=== PATIENT | female | born 1965 | race Caucasian/White ===

== ENCOUNTER 2021-07-20 10:28 | Outpatient (CLI) | payer BC, SELFPAY ==
[2021-07-20 10:42] LABS: Basophils Absolute Auto 0.02 K/mm3 (0.00-0.10); Basophils Percent Auto 0.4 % (0.0-1.0); Eosinophils Absolute Auto 0.09 K/mm3 (0.02-0.50); Eosinophils Percent Auto 1.7 % (1.0-6.0); Hematocrit 41.5 % (35.0-49.0); Hemoglobin 13.4 g/dL (12.0-15.0); Immature Granulocyte Absolute 0.02 K/mm3 (0.00-0.00); Immature Granulocyte Percent A 0.4 % (0.0-0.0); Lymphocytes Absolute Auto 2.02 K/mm3 (1.10-4.50); Mean Corpuscular HGB Conc 32.3 g/dL (32.0-36.0); Mean Corpuscular Volume 89.8 fL (78.0-102.0); Mean Platelet Volume 9.2 fl (9.2-11.8); Monocytes Absolute Auto 0.37 K/mm3 (0.10-0.90); Neutrophils Absolute Auto 2.8 K/mm3 (1.7-7.2); Neutrophils Percent Auto 52.5 % (50.0-70.0); Platelet Count Result 247 K/mm3 (150-420); Red Blood Count 4.62 M/mm3 (4.20-5.40); Red Cell Distribution Width 12.2 % (11.6-14.4); White Blood Count 5.3 K/mm3 (4.8-10.8)
[2021-07-20 12:22] LABS: Alanine Aminotransferase 34 U/L (14-59); Alkaline Phosphatase 80 U/L (46-116); Anion Gap 5 mmol/L (8-16); Aspartate Amino Transferase 15 U/L (15-37); Bilirubin,Total 0.4 mg/dL (0.00-1.00); Blood Urea Nitrogen 16 mg/dL (7-18); Calcium 8.8 mg/dL (8.5-10.1); Carbon Dioxide 31 mmol/L (21-32); Chloride 105 mmol/L (98-108); Cholesterol 206 mg/dL (0-200); Estimated Glomerular Filt Rate > 60; Ferritin 151 ng/mL (8-252); Glucose 92 mg/dL (70-99); HDL Direct 65 mg/dL (40-60); Iron 99 ug/dL (50-170); LDL Cholesterol Calculated 131 mg/dL (<130); Osmolality Calculated 293 mOsm/kg (285-295); Percent Iron Saturation 32 % (12-57); Sodium 141 mmol/L (136-145); Thyroid Stimulating Hormone 2.71 uIU/mL (0.36-3.74); Total Protein 7.2 g/dL (6.4-8.2); Triglycerides 49 mg/dL (0-150); Vitamin B12 491 pg/mL (193-986)
[2021-07-23 15:18] LABS: Vitamin D 25 Hydroxy 35 ng/mL (30-100)
== END 2021-07-20 10:29 | disposition home or self-care (01) ==
LOC: CHSLAB 10:32
PROVIDERS: PCP Internal Medicine; Visit Provider Clinical Nurse Specialist
DX: Z13.228 Encounter for screening for other metabolic disorders (principal); D64.9 Anemia, unspecified; E89.0 Postprocedural hypothyroidism; Z13.220 Encounter for screening for lipoid disorders; E55.9 Vitamin D deficiency, unspecified
CPT/HCPCS: 36415; 80053; 80061; 82306; 82607; 82728; 83540; 83550; 84443; 85025

== ENCOUNTER 2021-07-31 09:24 | Outpatient (CLI) | payer BC, SELFPAY ==
--- NOTE | ~2021-07-31 | US_ITS ---
EXAMINATION: US venous doppler [facility] EXAM DATE: 07/31/2021 10:14 INDICATION: Leg swelling swelling, reflux. TECHNIQUE: Multiple grayscale, color flow and Doppler images of the left lower extremity deep venous system were obtained and reviewed. There is no prior study for comparison. FINDINGS: The left common femoral, femoral and profunda veins demonstrate normal color flow, respirat ory variation, augmentation and compressibility. Compressibility, color flow confirmed within the le ft popliteal, posterior tibial, peroneal, and greater saphenous veins. Left Standing Venous Mapping: reflux seconds duration; vein size. Greater saphenous origin: 0 seconds; 5.2 mm. Greater saphenous mid thigh:------ 0 seconds; 3.9 mm. Greater saphenous below knee:--- 0 seconds; 3.2 mm. Lesser saphenous proximally:------ 0 seconds; 2.8 mm. Lesser saphenous distally: 0 seconds; 1.7 mm. IMPRESSION: No left lower extremity deep venous thrombosis or reflux demonstrated. Reviewed, dictated and finalized at location B. IMPRESSION: No left lower extremity deep venous thrombosis or reflux demonstrat ed.
== END 2021-07-31 09:25 | disposition home or self-care (01) ==
LOC: ANHIMG 09:27
PROVIDERS: PCP Internal Medicine; Visit Provider Clinical Nurse Specialist
DX: M79.605 Pain in left leg (principal); M79.89 Other specified soft tissue disorders
CPT/HCPCS: 93971

== ENCOUNTER 2021-09-20 10:03 | Outpatient (CLI) | payer BC, SELFPAY ==
--- NOTE | 2021-09-20 11:30 | NEURO_ITS ---
Impression: # Complains of paresthesia of lower extremities. # Normal nerve conduction study. # No Tarsal Tunnel Syndrome. # Normal needle/EMG exam. # Clinical correlation recommended. Nerve Conduction Studies Anti Sensory Summary Table Stim Site NR Peak (ms) P-T Amp (?V) Site1 Site2 Delta-P (ms) Dist (cm) Ramone (m/s) Left Sup Fibular Anti Sensory (Ant Lat Mall) 14 cm 2.6 99.8 14 cm Ant Lat Mall 2.6 16.0 62 Right Sup Fibular Anti Sensory (Ant Lat Mall) 14 cm 2.9 11.9 14 cm Ant Lat Mall 2.9 16.0 55 Left Sural Anti Sensory (Lat Mall) Calf 3.3 4.3 Calf Lat Mall 3.3 16.0 48 Right Sural Anti Sensory (Lat Mall) Calf 3.8 13.7 Calf Lat Mall 3.8 16.0 42 Motor Summary Table Stim Site NR Onset (ms) O-P Amp (mV) Site1 Site2 Delta-0 (ms) Dist (cm) Ramone (m/s) Left Lateral Plantar Motor (ADM) Med Mall 4.7 4.1 Right Lateral Plantar Motor (ADM) Med Mall 4.5 3.7 Left Peroneal Motor (Vastus Med) Ankle 4.1 3.3 Popit Ankle 7.7 39.0 51 Popit 11.8 3.1 Right Peroneal Motor (Vastus Med) Ankle 4.0 5.5 Popit Ankle 8.0 38.0 48 Popit 12.0 4.7 Left Tibial Motor (Abd West Brev) Ankle 4.8 1.6 Knee Ankle 7.7 42.0 55 Knee 12.5 3.1 Right Tibial Motor (Abd West Brev) Ankle 4.2 10.7 Knee Ankle 9.2 42.0 46 Knee 13.4 6.8 F Wave Studies NR F-Lat (ms) L-R F-Lat (ms) Left Peroneal (Mrkrs) (EDB) 51.47 1.04 Right Peroneal (Mrkrs) (EDB) 50.43 1.04 Left Tibial (Mrkrs) (Abd Hallucis) 53.72 1.14 Right Tibial (Mrkrs) (Abd Hallucis) 52.58 1.14 EMG Side Muscle Nerve Root Ins Act Fibs Amp Dur Recrt Comment Right AntTibialis Dp Br Fibular L4-5 Nml Nml Nml Nml Nml Right Gastroc Tibial S1-2 Nml Nml Nml Nml Nml Right Fibularis Long Sup Br Fibular L5-S1 Nml Nml Nml Nml Nml Right Flex Dig Long Tibial L5-S2 Nml Nml Nml Nml Nml Right Ext Dig Brev Dp Br Fibular L5, S1 Nml Nml Nml Nml Nml Left AntTibialis Dp Br Fibular L4-5 Nml Nml Nml Nml Nml Left Gastroc Tibial S1-2 Nml Nml Nml Nml Nml Left Fibularis Long Sup Br Fibular L5-S1 Nml Nml Nml Nml Nml Left Flex Dig Long Tibial L5-S2 Nml Nml Nml Nml Nml Left Ext Dig Brev Dp Br Fibular L5, S1 Nml Nml Nml Nml Nml MTDD
== END 2021-09-20 10:04 | disposition home or self-care (01) ==
LOC: ANHNEURO 10:12
PROVIDERS: PCP Internal Medicine; Visit Provider Clinical Nurse Specialist
DX: R20.0 Anesthesia of skin (principal); R20.2 Paresthesia of skin
CPT/HCPCS: 95886; 95911

== ENCOUNTER 2022-07-26 08:05 | Outpatient (CLI) | payer BC, SELFPAY ==
--- NOTE | ~2022-07-26 | XR_ITS ---
EXAMINATION: XR chest 2V DATE: 07/26/2022 08:40 INDICATION: Cough and shortness of breath TECHNIQUE: PA and lateral views of the chest are obtained. COMPARISON: 10/04/2009 FINDINGS: The lungs are free of acute opacities. No pleural effusion or pneumothorax. The cardiomedia stinal silhouette is normal. There is moderate thoracic spondylosis. IMPRESSION: 1. No acute cardiopulmonary abnormality. Reviewed, dictated and finalized at location B.
[2022-07-26 08:20] LABS: Basophils Absolute Auto 0.02 K/mm3 (0.00-0.10); Basophils Percent Auto 0.4 % (0.0-1.0); Eosinophils Absolute Auto 0.09 K/mm3 (0.02-0.50); Eosinophils Percent Auto 1.7 % (1.0-6.0); Hematocrit 41.5 % (35.0-49.0); Hemoglobin 13.4 g/dL (12.0-15.0); Immature Granulocyte Absolute 0.03 K/mm3 (0.00-0.00); Immature Granulocyte Percent A 0.6 % (0.0-0.0); Lymphocytes Absolute Auto 2.17 K/mm3 (1.10-4.50); Lymphocytes Percent Auto 40.9 % (18.0-42.0); Mean Corpuscular HGB Conc 32.3 g/dL (32.0-36.0); Mean Corpuscular Hemoglobin 28.8 pg (27.0-31.0); Mean Corpuscular Volume 89.2 fL (78.0-102.0); Mean Platelet Volume 9.5 fl (9.2-11.8); Monocytes Absolute Auto 0.35 K/mm3 (0.10-0.90); Monocytes Percent Auto 6.6 % (2.0-11.0); Neutrophils Absolute Auto 2.6 K/mm3 (1.7-7.2); Neutrophils Percent Auto 49.8 % (50.0-70.0); Platelet Count Result 252 K/mm3 (150-420); Red Blood Count 4.65 M/mm3 (4.20-5.40); Red Cell Distribution Width 12.2 % (11.6-14.4); White Blood Count 5.3 K/mm3 (4.8-10.8)
[2022-07-26 08:44] LABS: Alanine Aminotransferase 31 U/L (14-59); Albumin Level 3.6 g/dL (3.4-5.0); Alkaline Phosphatase 72 U/L (46-116); Anion Gap 9 mmol/L (8-16); Aspartate Amino Transferase 15 U/L (15-37); Bilirubin,Total 0.2 mg/dL (0.00-1.00); Blood Urea Nitrogen 19 mg/dL (7-18); Calcium 8.6 mg/dL (8.5-10.1); Carbon Dioxide 25 mmol/L (21-32); Chloride 106 mmol/L (98-108); Cholesterol 198 mg/dL (0-200); Estimated Glomerular Filt Rate > 60; Glucose 108 mg/dL (70-99); HDL Direct 59 mg/dL (40-60); LDL Cholesterol Calculated 127 mg/dL (<130); Osmolality Calculated 293 mOsm/kg (285-295); Potassium 3.9 mmol/L (3.5-5.1); Sodium 140 mmol/L (136-145); Thyroid Stimulating Hormone 3.57 uIU/mL (0.36-3.74); Triglycerides 58 mg/dL (0-150)
[2022-08-01 20:51] LABS: Vitamin D 25 Hydroxy 33 ng/mL (30-100)
== END 2022-07-26 08:06 | disposition home or self-care (01) ==
LOC: CHSIMG 08:09
PROVIDERS: PCP Internal Medicine; Visit Provider Clinical Nurse Specialist
DX: R05.9 Cough, unspecified (principal); Z13.228 Encounter for screening for other metabolic disorders; D64.9 Anemia, unspecified; Z13.220 Encounter for screening for lipoid disorders; E89.0 Postprocedural hypothyroidism; E55.9 Vitamin D deficiency, unspecified
CPT/HCPCS: 36415; 71046; 80053; 80061; 82306; 84443; 85025

== ENCOUNTER 2022-08-08 14:17 | Outpatient (CLI) | payer BC, SELFPAY ==
--- NOTE | 2022-08-08 16:24 | WPDPFTINT ---
PFT Procedure Performed PFT Procedure Performed Spirometry with Pre/Post Bronchodilator Plethysmography (Lung Vol) Diffusing Cap (DLCO) Flow Vol Loop PFT Interpretation This is a pulmonary function test with pre and post-bronchodilator spirometry, plethysmography and diffusing capacity. The test was performed and results interpreted in accordance with the 2019 and 2005 ATS/ERS Task Force guidelines respectively using the Global Lung Function Initiative-2012 reference equations. Patient demonstrated good effort and cooperation. Reproducibility criteria were met. The quality of the pre bronchodilator spirometry maneuver was Grade B and post bronchodilator spirometry maneuver was Grade A. Findings: Spirometry: The contour the inspiratory expiratory flow tracing are normal. The pre bronchodilator FVC is 2.97 L, 85% predicted. The pre bronchodilator FEV1 is 2.18 L, 79% predicted. The pre bronchodilator FEV1: FVC ratio 74%. The post bronchodilator FVC is 2.91 L, representing a 2% decrease. The post bronchodilator FEV1 is 2.18 L, representing no change. The post bronchodilator FEV1: FVC ratio 75%. Plethysmography: The total lung capacity is 4.66 L, 87% predicted. Functional residual capacity is 2.28 L, 75% predicted. The residual volume is 1.69 L, 83% predicted. Diffusion capacity: The diffusing capacity unadjusted for hemoglobin and carboxyhemoglobin is 23.0, 101% predicted. The diffusing capacity adjusted for alveolar volume is 5.12, 116% predicted. Impression: The spirometry is normal without evidence of an obstructive abnormality. There is no significant improvement after inhaling a single dose of albuterol. The lung volumes are normal. The diffusing capacity is normal. There are no prior studies for comparison
== END 2022-08-08 14:18 | disposition home or self-care (01) ==
LOC: ANHPFT 14:21
PROVIDERS: PCP Internal Medicine; Visit Provider Clinical Nurse Specialist
DX: J18.9 Pneumonia, unspecified organism (principal); J40 Bronchitis, not specified as acute or chronic
CPT/HCPCS: 94060; 94726; 94729

== ENCOUNTER 2024-02-09 11:21 | Outpatient (CLI) | payer BC, SELFPAY ==
--- NOTE | ~2024-02-09 | XR_ITS ---
XR shoulder LT min 2V 02/09/2024 11:50 Indication: Left shoulder pain Procedure: 4 views left shoulder Comparison: No prior studies for comparison. Findings: There is anatomic alignment. No fracture or traumatic malalignment. No significant soft tis lee abnormality. No foreign bodies. Impression: 1: No significant bone or joint abnormality. Reviewed, dictated and finalized at location B. Impression: 1: No significant bone or joint abnormality.
== END 2024-02-09 11:22 | disposition home or self-care (01) ==
LOC: CHSIMG 11:23
PROVIDERS: PCP Internal Medicine; Visit Provider Clinical Nurse Specialist
DX: M25.512 Pain in left shoulder (principal)
CPT/HCPCS: 73030

== ENCOUNTER 2024-02-10 06:59 | Outpatient (CLI) | payer BC, SELFPAY ==
[2024-02-10 07:11] LABS: Basophils Absolute Auto 0.03 K/mm3 (0.00-0.10); Basophils Percent Auto 0.6 % (0.0-1.0); Eosinophils Absolute Auto 0.08 K/mm3 (0.02-0.50); Eosinophils Percent Auto 1.5 % (1.0-6.0); Hematocrit 41.6 % (35.0-49.0); Hemoglobin 13.3 g/dL (12.0-15.0); Immature Granulocyte Absolute 0.02 K/mm3 (0.00-0.00); Immature Granulocyte Percent A 0.4 % (0.0-0.0); Lymphocytes Absolute Auto 2.28 K/mm3 (1.10-4.50); Lymphocytes Percent Auto 41.8 % (18.0-42.0); Mean Corpuscular Hemoglobin 28.6 pg (27.0-31.0); Mean Corpuscular Volume 89.5 fL (78.0-102.0); Monocytes Absolute Auto 0.37 K/mm3 (0.10-0.90); Monocytes Percent Auto 6.8 % (2.0-11.0); Neutrophils Absolute Auto 2.67 K/mm3 (1.70-7.20); Neutrophils Percent Auto 48.9 % (50.0-70.0); Platelet Count Result 233 K/mm3 (150-420); Red Blood Count 4.65 M/mm3 (4.20-5.40); Red Cell Distribution Width 12.2 % (11.6-14.4); White Blood Count 5.5 K/mm3 (4.8-10.8)
[2024-02-10 08:27] LABS: Alanine Aminotransferase 31 U/L (14-59); Albumin Level 3.6 g/dL (3.4-5.0); Alkaline Phosphatase 62 U/L (46-116); Anion Gap 10 mmol/L (8-16); Aspartate Amino Transferase 17 U/L (15-37); Bilirubin,Total 0.3 mg/dL (0.00-1.00); Blood Urea Nitrogen 19 mg/dL (7-18); Calcium 8.7 mg/dL (8.5-10.1); Carbon Dioxide 27 mmol/L (21-32); Chloride 105 mmol/L (98-108); Cholesterol 179 mg/dL (0-200); Estimated Glomerular Filt Rate > 60; Free T4 Free Thyroxine 0.81 ng/dL (0.76-1.46); Glucose 100 mg/dL (70-99); HDL Direct 64 mg/dL (40-60); LDL Cholesterol Calculated 97 mg/dL (<130); Osmolality Calculated 296 mOsm/kg (285-295); Potassium 4.2 mmol/L (3.5-5.1); Sodium 142 mmol/L (136-145); Thyroid Stimulating Hormone 7.22 uIU/mL (0.36-3.74); Total Protein 6.6 g/dL (6.4-8.2); Triglycerides 88 mg/dL (0-150)
[2024-02-12 22:12] LABS: Vitamin D 25 Hydroxy 49 ng/mL (30-100)
[2024-02-16 16:18] LABS: Free T3 2.78 pg/mL (2.18-3.98)
== END 2024-02-10 07:00 | disposition home or self-care (01) ==
LOC: CHSLAB 07:00
PROVIDERS: PCP Internal Medicine; Visit Provider Clinical Nurse Specialist
DX: Z13.228 Encounter for screening for other metabolic disorders (principal); Z13.220 Encounter for screening for lipoid disorders; F41.9 Anxiety disorder, unspecified; E55.9 Vitamin D deficiency, unspecified; E89.0 Postprocedural hypothyroidism; D64.9 Anemia, unspecified; R53.83 Other fatigue
CPT/HCPCS: 36415; 80053; 80061; 82306; 84439; 84443; 84481; 85025

== ENCOUNTER 2024-02-12 14:06 | Outpatient (CLI) | payer BC, SELFPAY ==
--- NOTE | ~2024-02-12 | US_ITS ---
EXAMINATION: US thyroid DATE: 02/12/2024 14:43 INDICATION: Other specified postprocedural states. Partial right thyroidectomy. TECHNIQUE: Multiple ultrasound images of the thyroid were obtained. COMPARISON: None. FINDINGS: The right thyroid lobe measures 1.4 x 0.8 x 0.7 cm. The left thyroid lobe measures 4.6 x 1.8 x 1.4 c m. In the left thyroid lobe, there is a 5 mm solid, very hypoechoic, wider than tall nodule with smo oth margin without echogenic foci (TI-RADS TR4). In the left thyroid lobe, there is a 6 mm solid, rosalina y hypoechoic, wider than tall nodule with smooth margin without echogenic foci (TR4). IMPRESSION: 1. Small thyroid nodules, likely not clinically significant. No follow-up is needed. Reviewed, dictated and finalized at location A. IMPRESSION: 1. Small thyroid nodules, likely not clinically significant. No follow-up is ne eded.
== END 2024-02-12 14:07 | disposition home or self-care (01) ==
LOC: CHSIMG 14:07
PROVIDERS: PCP Internal Medicine; Visit Provider Clinical Nurse Specialist
DX: R79.89 Other specified abnormal findings of blood chemistry (principal); Z98.890 Other specified postprocedural states; E04.2 Nontoxic multinodular goiter
CPT/HCPCS: 76536

== ENCOUNTER 2024-02-13 07:08 | Outpatient (CLI) | payer BC, SELFPAY ==
--- NOTE | ~2024-02-13 | MM_ITS ---
EXAMINATION: MM screening adonay BI w anthony HISTORY: Screening mammogram TECHNIQUE: Craniocaudal and mediolateral oblique 3-D tomosynthesis images were obtained and synthetic 2-D images were generated. CAD analysis was submitted and interpreted. COMPARISON: No prior mammogram is available for comparison at this institution. BREAST PARENCHYMAL COMPOSITION: The breasts are heterogeneously dense, which may obscure small masses . FINDINGS: Occasional bilateral benign calcifications. There is no evidence of suspicious mass, calcif ication, or architectural distortion to suggest malignancy in either breast. IMPRESSION: 1. No mammographic evidence of malignancy. 2. Recommend routine screening mammography in one year. BI-RADS Category 2: Benign finding(s). Reviewed, dictated and finalized at location A.
[2024-02-13 08:21] LABS: Hemoglobin A1C 5.2 % (<5.7)
[2024-02-13 08:24] LABS: Rheumatoid Factor Screen Negative (Negative)
[2024-02-13 08:36] LABS: Thyroid Stimulating Hormone 6.57 uIU/mL (0.36-3.74)
[2024-02-13 08:53] LABS: CRP < 0.5 mg/dL (0.0-0.9); Erythrocyte Sedimentation Rate 13 mm/hr (0-20)
[2024-02-13 09:37] LABS: Free T3 2.78 pg/mL (2.18-3.98)
[2024-02-15 12:12] LABS: ANA Cascade Screen Negative (Negative)
[2024-02-17 03:17] LABS: Thyroid Peroxidase Antibodies <1 IU/mL (<9)
== END 2024-02-13 07:09 | disposition home or self-care (01) ==
LOC: CHSIMG 07:09
PROVIDERS: PCP Internal Medicine; Visit Provider Clinical Nurse Specialist
DX: R79.89 Other specified abnormal findings of blood chemistry (principal); M79.10 Myalgia, unspecified site; R73.9 Hyperglycemia, unspecified; G62.9 Polyneuropathy, unspecified; Z12.31 Encounter for screening mammogram for malignant neoplasm of breast; E89.0 Postprocedural hypothyroidism; Z98.890 Other specified postprocedural states
CPT/HCPCS: 36415; 77063; 77067; 83036; 83516; 84443; 84481; 85652; 86038; 86140; 86225; 86235; 86376; 86430

== ENCOUNTER 2024-02-17 00:42 | Day surgery (SDC) | payer BC, SELFPAY ==
[2024-02-09 15:53] VITALS: BMI 32.3
--- NOTE | 2024-02-13 10:26 | SUR.PREOP ---
Patient called regarding upcoming procedure. Voicemail left regard appointment times.
[2024-02-17 08:10] VITALS: BP 112/72; PULSE 84; RESP 18; TEMP 36; O2SAT 100; BMI 32.2
[2024-02-17] MEDS: LACTATED RINGERS 1,000 ML 150 ML IV CONT ×2 (08:13→09:39)
--- NOTE | 2024-02-17 08:28 | P.PNAN_ITS ---
Anes - Initial Pre Proc Eval Procedure: Operation Date: 02/17/24 09:00 Proposed Procedures p Screening Colonoscopy - Tylor Augustine DO Date/Time: 02/17/24 08:28 Surgeon: Tylor Augustine DO Pre Op Diagnosis: Screening neoplasm Patient Data Age: 58 Gender: F Height: 1.68 m Weight: 90.6 kg Last Vital Signs Temp 96.8 F L 02/17/24 08:10 Pulse 84 02/17/24 08:10 Resp 18 02/17/24 08:10 BP 112/72 02/17/24 08:10 Pulse Ox 100 02/17/24 08:10 O2 Del Method Room Air 02/17/24 08:10 Allergies Allergy/AdvReac Type Severity Reaction Status Date / Time No Known Allergies Allergy Verified 02/17/24 08:09 Home Medications Medication Instructions Recorded Confirmed Type alprazolam 0.5 mg tablet (Xanax) 0.5 mg PO TID PRN anxiety #30 tabs 05/19/23 02/09/24 Rx escitalopram oxalate 10 mg tablet 10 mg PO DAILY #90 tabs 02/09/24 02/09/24 Rx (Lexapro) Patient hx anesthesia problems: none Family hx anesthesia problems: none Results Review: All pre-operative results and documents have been reviewed as part of the pre- operative evaluation. [facility] Past Medical History Medical History (Updated 02/12/24 @ 10:18 by ASHELY Hodge) Broken ankle Bronchitis Depression Fever Influenza A Left leg pain Left leg swelling Surgical History Surgical History H/O section History of thyroid surgery History of tonsillectomy Family History Family History Father , June 2022 Bladder cancer Hypertension Bile duct cancer Mother Hypertension Heart disease Heart attack June 2023 Grandparent Cancer Diabetes mellitus Cerebrovascular accident Social History Social History Smoking status: Never smoker Alcohol intake: never Substance use: never Substance use type: does not use Lack of Transportation: No Lack of Food: Never True Current Housing: I Have Housing Concerned About Future Housing: No Difficulty Paying Gas/Electric Bills: No Education: Master's Degree or Higher Difficulty w/ Childcare or Family Care: No Living arrangements: alone Spiritual care concerns: No Anes - Eval Final PreProcedure Day of Procedure 02/17/24 08:28 Patient weight: normal Heart: regular rate and rhythm Lungs: clear to auscultation Airway: Mallampati scale class II Neurological: alert and oriented Last oral intake: >/= 8 hours ASA classification: II Emergent: no Anesthetic plan: proceed Anesthesia type and monitoring: general GIVS and standard monitoring Results Review: All pre-operative results and documents have been reviewed as part of the pre- operative evaluation. Informed Consent: The patient's anesthetic plan and its attendant risks and benefits were discussed with the patient/family/POA. Questions were solicited and answers provided to the satisfaction of the patient/family/POA.
--- NOTE | 2024-02-17 09:11 | PM.IMHP ---
H&P: HPI History of Present Illness Date/Time: 02/17/24 09:11 Chief Complaint: Screening for colorectal cancer Narrative: This is a 58-year-old woman who presents for colonoscopy. Her last colonoscopy was 10 years ago. She states she has a family history of colon cancer in her grandmother, but no first-degree relatives. She denies any hematochezia or melena. Review of Systems Review of Systems: All systems reviewed & are unremarkable except as noted in HPI and below Constitutional: Constitutional: Denies chills, Denies fever(s), Denies headache(s) and Denies weight loss Eyes: Eyes: Denies change in vision ENT: Denies dizziness, Denies headache(s), Denies neck mass and Denies throat swelling Cardiovascular: Cardiovascular: Denies chest pain, Denies lightheadedness and Denies dyspnea Respiratory: Respiratory: Denies cough, Denies dyspnea and Denies wheezing Gastrointestinal: Gastrointestinal: Denies abdominal pain, Denies change in bowel habits, Denies nausea and Denies vomiting Genitourinary: Genitourinary: Denies hematuria and Denies dysuria Musculoskeletal: Musculoskeletal: Reports as per HPI Integumentary/Breasts: Skin/Breast: Reports as per HPI Neurologic: Denies dizziness and Denies headache(s) Allergic/Immunologic: Allergic/Immunologic: Denies throat swelling and Denies wheezing [facility] Past Medical History Medical History (Updated 02/17/24 @ 09:12 by Tylor Augustine DO) Broken ankle Bronchitis Depression Fever Influenza A Left leg pain Left leg swelling Surgical History Surgical History H/O section History of thyroid surgery History of tonsillectomy Family History Family History Father , June 2022 Bladder cancer Hypertension Bile duct cancer Mother Hypertension Heart disease Heart attack June 2023 Grandparent Cancer Diabetes mellitus Cerebrovascular accident Social History Social History Smoking status: Never smoker Alcohol intake: never Substance use: never Substance use type: does not use Lack of Transportation: No Lack of Food: Never True Current Housing: I Have Housing Concerned About Future Housing: No Difficulty Paying Gas/Electric Bills: No Education: Master's Degree or Higher Difficulty w/ Childcare or Family Care: No Living arrangements: alone Spiritual care concerns: No Meds Home Medications and Allergies Home Medications Medication Instructions Recorded Confirmed Type alprazolam 0.5 mg tablet (Xanax) 0.5 mg PO TID PRN anxiety #30 tabs 05/19/23 02/09/24 Rx escitalopram oxalate 10 mg tablet 10 mg PO DAILY #90 tabs 02/09/24 02/09/24 Rx (Lexapro) Allergies Allergy/AdvReac Type Severity Reaction Status Date / Time No Known Allergies Allergy Verified 02/17/24 08:09 Vital Signs Vital Signs - 24 hr 02/17/24 08:10 Temperature 36.0 C L Pulse Rate 84 Respiratory Rate 18 Blood Pressure 112/72 Pulse Oximetry 100 Oxygen Delivery Room Air Exam Const: General: no acute distress and alert Orientation/consciousness: patient oriented x3 HENMT: Head: normocephalic and atraumatic Ears: hearing grossly normal bilaterally Face/Nose/Sinus: Normal nares present Mouth: Yes Normal oral and palatal mucosa present Eyes: Periorbital: periorbital findings normal Sclera: sclerae normal EOM: EOMs intact bilaterally Neck: Neck: normal visual inspection, no lymphadenopathy and trachea midline Chest: Chest palpation & inspection: normal inspection of the chest Resp: Effort & Inspection: normal respiratory effort Auscultation: clear to auscultation bilaterally Cardio: Jugular venous distension: no JVD Rate: regular rate Rhythm: regular rhythm Heart sounds: S1 normal heart sound present and S2 luyd
[2024-02-17 09:50] VITALS: BP 118/72; PULSE 85; RESP 24; O2SAT 100
[2024-02-17 10:00] VITALS: BP 127/78; PULSE 78; RESP 22; O2SAT 100
[2024-02-17 10:09] VITALS: BP 125/76; PULSE 77; RESP 20; O2SAT 100
== END 2024-02-17 10:16 | disposition home or self-care (01) ==
PROVIDERS: PCP Internal Medicine; Visit Provider Surgery
PROC: 0DJD8ZZ Inspection of Lower Intestinal Tract, Via Natural or Artificial Opening Endoscopic (ICD-10-PCS; CPT 45378; principal; 2024-02-17 09:00)
DX: Z12.11 Encounter for screening for malignant neoplasm of colon (principal); K64.8 Other hemorrhoids; F32.A Depression, unspecified; Z98.890 Other specified postprocedural states; Z80.52 Family history of malignant neoplasm of bladder; Z80.0 Family history of malignant neoplasm of digestive organs; Z82.49 Family history of ischemic heart disease and other diseases of the circulatory system
CPT/HCPCS: 45378; J2704; J7120

== ENCOUNTER 2024-02-19 07:56 | Outpatient (RCR) | payer BC, SELFPAY ==
--- NOTE | 2024-02-19 09:12 | OPREHPOC ---
Outpatient Therapy Plan of Care This is a Multidisciplinary Plan of Care that may contain components documented by all disciplines (PT, OT, and ST.) PT Problem 1 PT Problem #1 Knowledge Deficit PT Goal 1 Goal The patient will be independent in a home exercise program. Target Visit 4 PT Problem 2 PT Problem #2 Pain PT Goal 1 Goal The patient will report no greater than 2/10 left shoulder pain with ADLs. Target Visit 9 PT Problem 3 PT Problem #3 Impaired Range of Motion PT Goal 1 Goal 1. The patient will demonstrate at least 160 degrees of left shoulder flexion to improve overhead reaching ability. 2. The patient will demonstrate at least 150 degrees of left shoulder abduction to improve ability to reach to the side. Target Visit 9 PT Problem 4 PT Problem #4 Impaired Strength PT Goal 1 Goal The patient will demonstrate at least 4/5 left shoulder strength in order to improve ability lift household items. Target Visit 9 PT Problem 5 PT Problem #5 Impaired Functional Mobil PT Goal 1 Goal The patient will demonstrate 15% or less self perceived disability per the Quick DASH questionnaire. Target Visit 9
--- NOTE | 2024-02-19 09:12 | PTOPEVAL1 ---
Assessment and note entered by Rosanne Castillo, PT Evaluation Information Assessment Status Evaluation Diagnosis L shoulder pain Subjective Information Candice Quick reports that her left shoulder started hurting a few months ago that started for unknown reasons. She thought that it would go away but it hasn't. 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 She went to the doctor and a x-ray was taken. The x-ray was normal. She is unable to lay on her left side, has difficulty reaching behind her back , and difficulty reaching overhead. She feels pain along the joint line and it is always present. She also notes catching when she tries to reach to end range. Reported Pain Level Pain Score 2: Self Report Assessment PT Clinical Summary Candice Quick presents with left shoulder pain with an insidious onset. She has difficulty with laying on her left side, reaching behind her back, reaching overhead, and reaching to the side. She objectively demonstrates tenderness at the long head of the bicep tendon and rotator cuff tendons, rounded shoulder posture, decreased and painful left shoulder AROM, decreased left shoulder strength, and decreased functional abilities. She demonstrates positive special tests for rotator cuff tendonitis and shoulder impingement. She will benefit from skilled PT to address these limitations. Plan of Care Interventions Electrical Stimulation,Hot Pack/Cold Pack,Manual Therapy,Neuro Re-education,Patient/Caregiver Educati,Therapeutic Activities,Therapeutic Exercise PT Services Indicated Yes Treatment Frequency and 2 times a week for 9 visits Duration These treatments will address the objective and functional deficits as defined above. The patient will be advanced safely and appropriately in order for the patient to progress towards his/her prior level of function. Additional exercises will be introduced and as well as a comprehensive home exercise program upon discharge, if needed, ?to ensure carryover of functional gains achieved in the clinic. This treatment plan has been reviewed and agreement upon by the patient.
[2024-03-18 07:03] VITALS: BP_SYST 160
--- NOTE | 2024-03-18 08:44 | OPREHPOC ---
Outpatient Therapy Plan of Care This is a Multidisciplinary Plan of Care that may contain components documented by all disciplines (PT, OT, and ST.) PT Problem 1 PT Problem #1 Knowledge Deficit PT Goal 1 Goal The patient will be independent in a home exercise program. Target Visit 4 Progress Met PT Problem 2 PT Problem #2 Pain PT Goal 1 Goal The patient will report no greater than 2/10 left shoulder pain with ADLs. Target Visit 17 Progress Partially Met Comment Continue PT Problem 3 PT Problem #3 Impaired Range of Motion PT Goal 1 Goal 1. The patient will demonstrate at least 160 degrees of left shoulder flexion to improve overhead reaching ability. 2. The patient will demonstrate at least 150 degrees of left shoulder abduction to improve ability to reach to the side. Target Visit 17 Progress Partially Met Comment Progressing towards, continue PT Problem 4 PT Problem #4 Impaired Strength PT Goal 1 Goal The patient will demonstrate at least 4/5 left shoulder strength in order to improve ability lift household items. Target Visit 17 Progress Partially Met Comment Progressing towards, continue PT Problem 5 PT Problem #5 Impaired Functional Mobil PT Goal 1 Goal The patient will demonstrate 15% or less self perceived disability per the Quick DASH questionnaire. Target Visit 9
--- NOTE | 2024-03-18 08:44 | PTOPPROG ---
Assessment and note entered by Rosanne Castillo, PT Evaluation Information Assessment Status Progress Diagnosis L shoulder pain Onset 02/12/24 Subjective Information Candice reports overall her left shoulder is getting better. She notes she can sleep better due to less pain. She also notes movement is better but still restricted in some directions. She feels she has better posture and notes she has been holding her shoulders back better. She also still is a little uncomfortable to reach behind her back and performing heavy house chores or yard work increases her pain. Assessment PT Clinical Summary Candice Quick has completed 9 skilled PT visits for left shoulder pain. She is reporting less pain and improved mobility overall noting she can sleep much better now without pain. She does still have pain when reaching behind her back to wash and don/doff a bra as well as reaching overhead and performing yard work. She objectively demonstrates improved left shoulder ROM, improved left shoulder strength, and improved posture. She does still have limitations with left shoulder flexion and abduction AROM, pain with internal rotation, weakness, and positive special tests for impingement and rotator cuff tendonitis. She is progressing well toward her goals and will continue to benefit from skilled PT to further improve the above listed deficits. Plan of Care Interventions Electrical Stimulation,Hot Pack/Cold Pack,Manual Therapy,Patient/Caregiver Educati,Therapeutic Activities,Therapeutic Exercise PT Services Indicated Yes Treatment Frequency and Continue skilled PT 2 times a week for 8 visits. Duration These treatments will address the objective and functional deficits as defined above. The patient will be advanced safely and appropriately in order for the patient to progress towards his/her prior level of function. Additional exercises will be introduced and as well as a comprehensive home exercise program upon discharge, if needed, ?to ensure carryover of functional gains achieved in the clinic. This treatment plan has been reviewed and agreement upon by the patient.
--- NOTE | 2024-03-23 07:06 | PCPTNOTE ---
03/23/24: Pt cancelled 03/23/24 and 03/25/24 due to her work schedule. -Rosanne Castillo, PT
--- NOTE | 2024-04-16 08:02 | OPREHPOC ---
Outpatient Therapy Plan of Care This is a Multidisciplinary Plan of Care that may contain components documented by all disciplines (PT, OT, and ST.) PT Problem 1 PT Problem #1 Knowledge Deficit PT Goal 1 Goal The patient will be independent in a home exercise program. Target Visit 4 Progress Met PT Problem 2 PT Problem #2 Pain PT Goal 1 Goal The patient will report no greater than 2/10 left shoulder pain with ADLs. Target Visit 17 Progress Partially Met PT Problem 3 PT Problem #3 Impaired Range of Motion PT Goal 1 Goal 1. The patient will demonstrate at least 160 degrees of left shoulder flexion to improve overhead reaching ability. -progress towards (133 ) 2. The patient will demonstrate at least 150 degrees of left shoulder abduction to improve ability to reach to the side. -met Target Visit 17 Progress Partially Met PT Problem 4 PT Problem #4 Impaired Strength PT Goal 1 Goal The patient will demonstrate at least 4/5 left shoulder strength in order to improve ability lift household items. Target Visit 17 Progress Met PT Problem 5 PT Problem #5 Impaired Functional Mobil PT Goal 1 Goal The patient will demonstrate 15% or less self perceived disability per the Quick DASH questionnaire. Target Visit 9 Progress Met
--- NOTE | 2024-04-16 08:02 | PTOPDC ---
Assessment and note entered by Rosanne Castillo, PT Evaluation Information Assessment Status Evaluation Diagnosis L Shoulder Pain Onset 02/12/24 Subjective Information Candice reports her left shoulder is much better overall. She notes the constant pain she was having has subsided. She is able to perform all daily tasks, job tasks, and yard work without pain . She does get occasional pain when she sleeps the wrong way or reaches behind her back too far but the pain subsides quickly. She also notes occasional twinges when she reaches overhead. She feels she has progressed enough she can perform exercises independently. Reported Pain Level Pain Score 3: Self Report Assessment PT Clinical Summary Candice Quick has completed 15 skilled PT visits for left shoulder pain. She is reporting significantly less left shoulder pain and ability to perform all daily, job, and yard work tasks without pain. She has occasional pain at night, reaching behind her back, and overhead but it subsides quickly. She demonstrates improved left shoulder AROM, improved left shoulder and scapular strength, improved posture, and less positive special tests. She has met all goals and will be discharged to an independent [facility]. Plan of Care PT Services Indicated No
== END 2024-04-16 08:25 | disposition home or self-care (01) ==
LOC: CHSPT 07:56
PROVIDERS: Visit Provider Clinical Nurse Specialist
DX: M25.512 Pain in left shoulder (principal)
CPT/HCPCS: 97014; 97110; 97140; 97161; 97750; G0283

== ENCOUNTER 2024-03-26 07:01 | Outpatient (CLI) | payer BC, SELFPAY ==
[2024-03-26 08:03] LABS: Free T4 Free Thyroxine 0.87 ng/dL (0.76-1.46); Thyroid Stimulating Hormone 2.41 uIU/mL (0.36-3.74)
== END 2024-03-26 07:02 | disposition home or self-care (01) ==
LOC: CHSLAB 07:03
PROVIDERS: PCP Internal Medicine; Visit Provider Clinical Nurse Specialist
DX: E03.9 Hypothyroidism, unspecified (principal)
CPT/HCPCS: 36415; 84439; 84443

== ENCOUNTER 2024-08-16 10:56 | Outpatient (CLI) | payer BC, SELFPAY ==
--- NOTE | ~2024-08-16 | XR_ITS ---
[id number] Ordering provider: ASHELY Hodge History: . No injury popping with pain upper left side of neck for 6 mo . Comparison: None. FINDINGS: VERTEBRAL BODIES: Normal height and alignment. No visible fracture or subluxation. The dens is intact . DISK SPACES: Well maintained. Multilevel facet joint disease. Multilevel facet joint disease. Multile felipe uncovertebral joint osteoarthritic changes. PARASPINOUS SOFT TISSUES: No prevertebral soft tissue swelling. IMPRESSION: No acute osseous abnormality cervical spine. Reviewed, dictated and finalized at location A.
== END 2024-08-16 10:57 | disposition home or self-care (01) ==
LOC: GOSHIMG 10:56
PROVIDERS: PCP Clinical Nurse Specialist; Visit Provider Clinical Nurse Specialist
DX: M54.2 Cervicalgia (principal)
CPT/HCPCS: 72040

== ENCOUNTER 2024-08-28 09:43 | Outpatient (CLI) | payer BC, SELFPAY ==
--- NOTE | ~2024-08-28 | MR_ITS ---
EXAMINATION: MR cervical spine wo con DATE: 08/28/2024 10:25 INDICATION: Neck pain. TECHNIQUE: Magnetic resonance imaging (MRI) of the cervical spine was performed without intravenous c ontrast. Sequences included sagittal T2-weighted FSE, sagittal T2-weighted FS FSE, sagittal T1-weight ed FSE, axial MERGE, and axial T2-weighted FSE. COMPARISON: Cervical spine radiographs 08/16/2024 FINDINGS: There is mild kyphosis of cervical spine. Vertebral body heights are normal. There is mildl y decreased disc height at C4-C5. The spinal cord signal intensity is normal. The following disc leve ls are specifically discussed: C2-C3: The disc does not extend beyond the endplate margin. There is severe bilateral uncovertebral j oint osteoarthritis. There is mild left facet joint osteoarthritis. There is no neural foraminal sten osis. There is no central canal stenosis. C3-C4: The disc does not extend beyond the endplate margin. There is no uncovertebral joint osteoarth ritis. There is severe bilateral facet joint osteoarthritis. There is mild bilateral neural foraminal stenosis. There is no central canal stenosis. C4-C5: The disc does not extend beyond the endplate margin. There is mild left uncovertebral joint os teoarthritis. There is severe bilateral facet joint osteoarthritis. There is mild bilateral neural fo raminal stenosis. There is mild central canal stenosis. C5-C6: The disc does not extend beyond the endplate margin. There is no uncovertebral joint osteoarth ritis. There is severe bilateral facet joint osteoarthritis. There is mild bilateral neural foraminal stenosis. There is mild central canal stenosis. C6-C7: There is a central protrusion. There is no uncovertebral joint osteoarthritis. There is severe bilateral facet joint osteoarthritis. There is mild bilateral neural foraminal stenosis. There is mi ld central canal stenosis. C7-T1: The disc does not extend beyond the endplate margin. There is no uncovertebral joint osteoarth ritis. There is severe bilateral facet joint osteoarthritis. There is mild bilateral neural foraminal stenosis. There is no central canal stenosis. IMPRESSION: 1. Mild cervical spondylosis. Reviewed, dictated and finalized at location A.
== END 2024-08-28 09:44 | disposition home or self-care (01) ==
LOC: CHSIMG 09:43
PROVIDERS: PCP Clinical Nurse Specialist; Visit Provider Clinical Nurse Specialist
DX: R20.2 Paresthesia of skin (principal); R20.0 Anesthesia of skin; M54.2 Cervicalgia; M43.02 Spondylolysis, cervical region
CPT/HCPCS: 72141

== ENCOUNTER 2024-09-24 15:59 | Emergency (ER) | payer BC, SELFPAY ==
--- NOTE | ~2024-09-24 | XR_ITS ---
EXAMINATION: XR chest 1V portable DATE: 09/24/2024 16:57 INDICATION: Vertigo. TECHNIQUE: A single frontal view of the chest was obtained. COMPARISON: Chest 2 views 07/26/2022 FINDINGS: There is no pneumonia, pleural effusion, or pneumothorax. The heart size is normal. IMPRESSION: 1. No acute cardiopulmonary disease. Reviewed, dictated and finalized at location A. ETIC RESONANCE TECHNOLOGIST
--- NOTE | ~2024-09-24 | CT_ITS ---
History: Vertigo and headache PROCEDURE: CT head without contrast. COMPARISON: None TECHNIQUE: Axial imaging of the head performed from the skull base to the vertex without IV contrast. Sagittal a nd coronal reformations obtained. DLP: 605 mGy-cm FINDINGS: The ventricles are normal in size, shape and position. There is no mass, mass effect or midline shift. There is no abnormal extra-axial fluid collection or intracranial hemorrhage. Visualized paranasal sinuses are clear. Faint opacification of the posterior most left mastoid air cells. The remaining mastoid air cells are otherwise well aerated. No acute displaced fractures within the overlying cranium. Impression: No acute intracranial hemorrhage or suspicious mass effect. Left-sided mastoid inflammation, as detailed above Reviewed, dictated and finalized at location A. E INSTALLER HELPER Impression: No acute intracranial hemorrhage or suspicious mass effect. Left-sided mastoid inflammation, as detailed above
[2024-09-24 16:04] VITALS: BP 125/82; PULSE 100; RESP 20; TEMP 36.6; O2SAT 100
--- NOTE | 2024-09-24 16:26 | ECG_ITS ---
Test Date: 2024-09-24 16:35:56 Measurements Intervals [place] Rate: 88 P: 62 HI: 201 QRS: 68 QRSD: 93 T: 66 QT: 378 QTc: 459 Interpretive Statements SINUS RHYTHM NORMAL ECG No previous ECG available for comparison Electronically Signed On 09-24-2024 18:26:06 LICENSED LOAN OFFICER ASSISTANT by Conrad William D.O.
--- NOTE | 2024-09-24 16:31 | ED.DIZZY ---
HPI - Dizziness General Chief Complaint: Dizziness Stated Complaint: dont feel right per pt Source: patient Mode of arrival: ambulatory Limitations: no limitations History of Present Illness HPI Narrative: 59 YEARS OLD WHITE FEMALE CAME TO THE ED BY PRIVATE CAR FROM HOME COMPLAINING OF SUDDEN ONSET OF DIZZINESS, EVERYTHING WITH ROLLING WHILE SITTING ON THE COMPUTER LASTED FOR 10 MINUTES THEN RESOLVED, ASSOCIATED WITH NAUSEA. PATIENT REPORTS THROBBING PAIN AT BOTH EAR MAINLY ON THE LEFT SIDE FOR OVER 1 WEEK. ON ARRIVAL TO THE ED PATIENT DENIES ANY DIZZINESS AT THIS TIME BUT IS 10 NAUSEATED. HISTORY OF BENIGN POSITIONAL VERTIGO. AND HYPOTHYROIDISM. PATIENT DOES NOT SMOKE OR DRINK OR USE DRUGS Related Data Allergies Allergy/AdvReac Type Severity Reaction Status Date / Time No Known Allergies Allergy Verified 08/16/24 10:05 Review of Systems Review of Systems: All systems reviewed & are unremarkable except as noted in HPI and below PMFSH Past Medical History Medical History (Updated 09/24/24 @ 17:43 by Marianna Oquendo MD) Broken ankle Bronchitis Cough Depression Fever Influenza A Left leg pain Left leg swelling Surgical History Surgical History H/O section History of thyroid surgery History of tonsillectomy Family History Family History Father , June 2022 Bladder cancer Hypertension Bile duct cancer Mother Hypertension Heart disease Heart attack June 2023 Grandparent Cancer Diabetes mellitus Cerebrovascular accident Social History Social History Smoking status: Never smoker Alcohol intake: never Substance use: never Substance use type: does not use Lack of Transportation: No Lack of Food: Never True Current Housing: I Have Housing Concerned About Future Housing: No Difficulty Paying Gas/Electric Bills: No Education: Master's Degree or Higher Difficulty w/ Childcare or Family Care: No Living arrangements: alone Spiritual care concerns: No Exam Narrative: GENERAL APPEARANCE: WELL-DEVELOPED, WELL-NOURISHED SKIN: NORMAL COLOR HEAD: NORMOCEPHALIC, NONTRAUMATIC EYES: CLEAR CONJUNCTIVA ENT: OROPHARYNX NORMAL, EARS NORMAL, NOSE NORMAL NECK: SUPPLE, NONTENDER CHEST AND RESPIRATORY: AIRWAY PATENT, NO RESPIRATORY DISTRESS, NO ACCESSORY MUSCLE USE HEART: REGULAR RATE/RHYTHM ABDOMEN: SOFT, NONTENDER, NO ORGANOMEGALY, QUIET BOWEL SOUNDS VASCULAR: NORMAL PERIPHERAL PULSES, NORMAL CAPILLARY REFILL. MUSCULOSKELETAL: NORMAL RANGE OF MOTION, NONTENDER BACK NEUROLOGIC: ALERT AND ORIENTED ?3, CRACKER SPRAYER IS NORMAL TESTED, NO GROSS MOTOR DEFICIT Course Vital Signs Vital signs: Vital Signs Temperature 36.6 C 09/24/24 16:04 Pulse Rate 100 09/24/24 16:04 Respiratory Rate 20 09/24/24 16:04 Blood Pressure 125/82 09/24/24 16:04 Pulse Oximetry 100 09/24/24 16:04 Oxygen Delivery Room Air 09/24/24 16:04 Temperature 36.6 C 09/24/24 16:04 Pulse Rate 93 09/24/24 16:48 Respiratory Rate 20 09/24/24 16:04 Blood Pressure 120/79 09/24/24 16:48 Pulse Oximetry 100 09/24/24 16:04 Oxygen Delivery Room Air 09/24/24 16:04 MDM - Dizziness MDM Narrative Medical decision making narrative: PATIENT PRESENTS WITH VERTIGO-LIKE SYMPTOMS VITAL SIGNS ARE STABLE PHYSICAL EXAMINATION INSIGNIFICANT DIFFERENTIAL DIAGNOSIS BENIGN POSITIONAL VERTIGO, ORTHOSTATIC HYPOTENSION, ELECTROLYTE IMBALANCE, DEHYDRATION, OTITIS MEDIA BLOOD WORKUP TODAY SHOWED WBC 6.6 OTHERWISE INSIGNIFICANT ABNORMALITIES, URINALYSIS SHOWED NO ACUTE ABNORMALITIES CT HEAD WITHOUT CONTRAST SHOWED POSSIBLE MASTOIDITIS ON THE LEFT SIDE CHEST X-RAY SHOWED NO ACUTE ABNORMALITY DIAGNOSIS VERTIGO, MASTOIDITIS DISCHARGED ON CLINDAMYCIN ANTIVERT ZOFRAN. Differential Diagnosis Differential diagnosis: Likely other ( ABOVE) Medical Records Attestation: I reviewed the patient's medical records. Lab Data Attestation: I reviewed the patient's lab results. 09/24/24 16:41 09/24/24 16:41 Labs: Lab Results 09/24/24 Range/Units 16:41 WBC 6.6 (4.8-10.8) K/mm3 RBC 4.49 (4.20-5.40) M/mm3 Hgb 13.1 (12.0-15.0) g/dL Hct 39.6 (35.0-49.0) % MCV 88.2 (78.0-102.0) fL MCH 29.2 (27.0-31.0) pg MCHC 33.1 (32-36) g/dL RDW 12.1 (11.6-14.4) % Plt Count 249 (150-420) K/mm3 MPV 9.2 (9.2-11.8) fl Immature Gran % (Auto) 0.3 H (0.0-0.0) % Neut % (Auto) 56.4 (50.0-70.0) % Lymph % (Auto) 34.6 (18.0-42.0) % [place] % (Auto) 7.0 (2.0-11.0) % Eos % (Auto) 1.2 (1.0-6.0) % Baso % (Auto) 0.5 (0.0-1.0) % Lymph # (Auto) 2.28 (1.10-4.50) K/mm3 [place] # (Auto) 0.46 (0.10-0.90) K/mm3 Eos # (Auto) 0.08 (0.02-0.50) K/mm3 Baso # (Auto) 0.03 (0.00-0.10) K/mm3 Abs Immat Gran (auto) 0.02 H (0.00-0.00) K/mm3 Absolute Neuts (auto) 3.72 (1.70-7.20) K/mm3 Absolute Nucleated RBC 0.00 (0.00-0.00) K/mm3 Nucleated RBC % 0.0 (0-0.0) % Sodium 144 (136-145) mmol/L Potassium 4.5 (3.5-5.1) mmol/L Chloride 105 (98-108) mmol/L Carbon Dioxide 31 (21-32) mmol/L Anion Gap 8 (4-12) mmol/L BUN 21 H (7-18) mg/dL Creatinine 0.90 (0.55-1.02) mg/dL Estim Creat Clear Calc 69 ml/min Estimated GFR > 60 (59 - ) Glucose 101 H (70-99) mg/dL Calculated Osmolality 301 H (285-295) mOsm/kg Calcium 8.8 (8.5-10.1) mg/dL Total Bilirubin 0.3 (0.00-1.00) mg/dL AST 16 (15-37) U/L ALT 24 (14-59) U/L Alkaline Phosphatase 74 (46-116) U/L Troponin I < 4.0 (0.00-60.4) ng/L Total Protein 6.9 (6.4-8.2) g/dL Albumin 3.5 (3.4-5.0) g/dL Imaging Data Radiologist's impression: Impressions Head CT 09/24/24 17:02 Impression: No acute intracranial hemorrhage or suspicious mass effect. Left-sided mastoid inflammation, as detailed above Chest X-Ray 09/24/24 17:03 IMPRESSION: 1. No acute cardiopulmonary disease. ECG Data EKG #1: Attestation: I personally reviewed and interpreted this ECG as follows: ECG completion date: 09/24/24 ECG completion time: 16:35 Interpretation: NORMAL SINUS RHYTHM AT 88 BEATS PER MINUTE, NORMAL EKG Critical Care Time Critical Care Time Critical Care Time: No Discharge Plan Discharge Clinical Impression: Vertigo, Acute mastoiditis Patient Disposition: Home, Self-Care Condition: Improved Instructions: Benign Paroxysmal Positional Vertigo (ED), Mastoiditis (ED) Additional Instructions: RETURN IF SYMPTOMS ARE WORSENING , CALL YOUR FAMILY PHYSICIAN FOR APPOINTMENT, TAKE TYLENOL NEEDED FOR ACHES AND PAIN, CONTINUE HOME MEDICATIONS. Prescriptions: New clindamycin HCl 300 mg capsule 300 mg PO Q6H Qty: 40 0RF meclizine [Antivert] 25 mg tablet,chewable 25 mg PO TID Qty: 20 0RF ondansetron HCl 4 mg tablet 4 mg PO Q4H Qty: 10 0RF Rx Instructions: 1st dose 1-2 hr before radiation No Action escitalopram oxalate [Lexapro] 10 mg tablet 10 mg PO DAILY Qty: 90 3RF alprazolam [Xanax] 0.5 mg tablet 0.5 mg PO TID PRN (Reason: anxiety) Qty: 30 1RF levothyroxine 25 mcg tablet 25 mcg PO DAILY Qty: 90 0RF Follow-up/Referrals: UNKNOWN,DOCTOR [Non-Staff] -
[2024-09-24] MEDS: MECLIZINE HCL 25 MG TABLET PO (16:44)
[2024-09-24] MEDS: ONDANSETRON HCL ODT 4 MG TABLET PO (16:44)
[2024-09-24] MEDS: diazePAM (*CRX) 5 MG TABLET PO (16:44)
[2024-09-24 16:46] LABS: Basophils Absolute Auto 0.03 K/mm3 (0.00-0.10); Basophils Percent Auto 0.5 % (0.0-1.0); Eosinophils Absolute Auto 0.08 K/mm3 (0.02-0.50); Eosinophils Percent Auto 1.2 % (1.0-6.0); Hematocrit 39.6 % (35.0-49.0); Hemoglobin 13.1 g/dL (12.0-15.0); Immature Granulocyte Absolute 0.02 K/mm3 (0.00-0.00); Immature Granulocyte Percent A 0.3 % (0.0-0.0); Lymphocytes Absolute Auto 2.28 K/mm3 (1.10-4.50); Lymphocytes Percent Auto 34.6 % (18.0-42.0); Mean Corpuscular HGB Conc 33.1 g/dL (32-36); Mean Corpuscular Hemoglobin 29.2 pg (27.0-31.0); Mean Corpuscular Volume 88.2 fL (78.0-102.0); Mean Platelet Volume 9.2 fl (9.2-11.8); Monocytes Absolute Auto 0.46 K/mm3 (0.10-0.90); Neutrophils Absolute Auto 3.72 K/mm3 (1.70-7.20); Neutrophils Percent Auto 56.4 % (50.0-70.0); Platelet Count Result 249 K/mm3 (150-420); Red Blood Count 4.49 M/mm3 (4.20-5.40); Red Cell Distribution Width 12.1 % (11.6-14.4); White Blood Count 6.6 K/mm3 (4.8-10.8)
[2024-09-24 16:47] VITALS: BP 130/79; BP 132/79; PULSE 86
[2024-09-24 16:48] VITALS: BP 120/79; PULSE 93
[2024-09-24 16:58] LABS: Add Urine Microscopic? YES; Appearance Urine Clear (Clear); Bilirubin Urine Negative (Negative); Blood Urine Negative (Negative); Color Urine Light Yellow (Yellow); Glucose Urine UA Negative (Negative); Ketones Urine Negative (Negative); Leukocyte Esterase Ur Trace LEU/UL (Negative); Nitrate Urine Negative (Negative); Protein Urine Negative (Negative); Specific Grav Ur >= 1.030 (1.010-1.020); Urobilinogen Urine 0.2 mg/dL (0.2-1.0)
[2024-09-24 17:07] LABS: Alanine Aminotransferase 24 U/L (14-59); Albumin Level 3.5 g/dL (3.4-5.0); Alkaline Phosphatase 74 U/L (46-116); Anion Gap 8 mmol/L (4-12); Aspartate Amino Transferase 16 U/L (15-37); Bilirubin,Total 0.3 mg/dL (0.00-1.00); Blood Urea Nitrogen 21 mg/dL (7-18); Calcium 8.8 mg/dL (8.5-10.1); Carbon Dioxide 31 mmol/L (21-32); Chloride 105 mmol/L (98-108); Estimated CRCL calculation 69 ml/min; Estimated Glomerular Filt Rate > 60; Glucose 101 mg/dL (70-99); Osmolality Calculated 301 mOsm/kg (285-295); Potassium 4.5 mmol/L (3.5-5.1); Sodium 144 mmol/L (136-145); Total Protein 6.9 g/dL (6.4-8.2)
[2024-09-24 17:08] LABS: Troponin I < 4.0 ng/L (0.00-60.4)
[2024-09-24 17:38] LABS: RBC Urine 0-2 /hpf (0-2); WBC Urine 0-5 /hpf (0-3)
[2024-09-24 17:39] VITALS: BP 130/80; PULSE 86; RESP 20; O2SAT 100
[2024-09-24 17:39] LABS: Bacteria Urine Trace /hpf; Squamous Epithelial Cell Urine Few /hpf (Few)
== END 2024-09-24 17:46 | disposition home or self-care (01) ==
LOC: CHSED 17:11
PROVIDERS: Emergency Provider Emergency Medicine; PCP Clinical Nurse Specialist
DX: R42 Dizziness and giddiness (principal); H70.009 Acute mastoiditis without complications, unspecified ear
CPT/HCPCS: 36415; 70450; 71045; 80053; 81001; 84484; 85025; 93005; 99284; A9270

== ENCOUNTER 2024-10-01 14:24 | Outpatient (RCR) | payer BC, SELFPAY ==
--- NOTE | 2024-10-01 15:58 | OPREHPOC ---
Outpatient Therapy Plan of Care This is a Multidisciplinary Plan of Care that may contain components documented by all disciplines (PT, OT, and ST.) PT Problem 1 PT Problem #1 Knowledge Deficit PT Goal 1 Goal / Goal Update 1. independent and compliant with HEP Target Visit 6 PT Problem 2 PT Problem #2 Pain PT Goal 1 Goal / Goal Update 1. patient to report no more than 2/10 pain in the cervical spine with reading activities Target Visit 12 PT Problem 3 PT Problem #3 Impaired Range of Motion PT Goal 1 Goal / Goal Update 1. 45 degrees or better active cervical flexion and extension 2. 30 degrees or better active cervical side bending bilat 3. 60 degrees or better active cervical rotation bilat Target Visit 12 PT Problem 4 PT Problem #4 Impaired Strength PT Goal 1 Goal / Goal Update 1. 5/5 deep cervical deck flexor strength Target Visit 12 PT Problem 5 PT Problem #5 Impaired Functional Mobil PT Goal 1 Goal / Goal Update 1. NDI to display 10% or less functional deficits 2. patient to report no dizziness symptoms 3. patient to report popping 2x per week or less in the cervical spine. Target Visit 12
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
--- NOTE | 2024-11-03 13:05 | OPREHPOC ---
Outpatient Therapy Plan of Care This is a Multidisciplinary Plan of Care that may contain components documented by all disciplines (PT, OT, and ST.) PT Problem 1 PT Problem #1 Knowledge Deficit PT Goal 1 Goal / Goal Update 1. independent and compliant with HEP Target Visit 6 Progress Met PT Problem 2 PT Problem #2 Pain PT Goal 1 Goal / Goal Update 1. patient to report no more than 2/10 pain in the cervical spine with reading activities Target Visit 12 Progress Met PT Problem 3 PT Problem #3 Impaired Range of Motion PT Goal 1 Goal / Goal Update 1. 45 degrees or better active cervical flexion and extension 2. 30 degrees or better active cervical side bending bilat 3. 60 degrees or better active cervical rotation bilat Target Visit 12 Progress Met PT Problem 4 PT Problem #4 Impaired Strength PT Goal 1 Goal / Goal Update 1. 5/5 deep cervical deck flexor strength Target Visit 12 Progress Met PT Problem 5 PT Problem #5 Impaired Functional Mobility PT Goal 1 Goal / Goal Update 1. NDI to display 10% or less functional deficits 2. patient to report no dizziness symptoms 3. patient to report popping 2x per week or less in the cervical spine. Target Visit 12 Progress Met
--- NOTE | 2024-11-03 13:05 | PTOPDC ---
Assessment and note entered by JT File, PT Evaluation Information Assessment Status Discharge ICD-10 Condition Codes (PT) Cervicalgia M54.2,Radiculopathy, cervical M54.13 Onset 09/23/24 Subjective Information patient reports she feels Great today, and has felt really good lately. she reports she has no pain in the neck any more, and has had no dizziness/vertigo lately. she reports she is compliant with her HEP 1x daily at home. Reported Pain Level Pain Score 0: Self Report Assessment PT Clinical Summary mrs. sharp presents to skilled PT for her 10th skilled PT visit. she is now pain free, displays improve rom, and improved strength of the cervical spine. she has met all goals for skilled PT, and is ready to DC skilled PT today. she was educated and reviewed in HEP progression at home. Plan of Care PT Services Indicated Yes
== END 2024-11-03 13:30 | disposition home or self-care (01) ==
LOC: CHSPT 14:24
PROVIDERS: Visit Provider Nurse Practitioner Family
DX: M54.12 Radiculopathy, cervical region (principal)
CPT/HCPCS: 97014; 97110; 97140; 97161; G0283

== ENCOUNTER 2024-10-06 09:39 | Outpatient (CLI) | payer BC, SELFPAY ==
--- NOTE | ~2024-10-06 | US_ITS ---
RIGHT UPPER QUADRANT ABDOMINAL ULTRASOUND (Doppler ultrasound interrogation techniques used as needed for this exam.) Ordering provider: LEIA Hodge-Ciro History: . R10.11 - Right upper quadrant pain . Comparison: None. FINDINGS: PANCREAS: Partially visualized. Normal echotexture and size. PORTAL VEIN: Hepatopedal flow demonstrated. LIVER: Normal size. Fat infiltration is noted. No focal hepatic lesions or perihepatic fluid collecti ons are identified. BILIARY DUCTS: No intra or extrahepatic biliary dilation. Common bile duct measures 5 mm in diameter which is normal for patient's age. GALLBLADDER: Cholelithiasis. Stone in the neck measures 1.6 cm. No sludge, gallbladder wall thickenin g or pericholecystic fluid. Negative sonographic Dorado's sign. FREE FLUID: None visualized within the upper abdomen. IMPRESSION: Cholelithiasis. Fat infiltration of the liver. Otherwise, normal right upper quadrant ultrasound. Reviewed, dictated and finalized at location A. TRICAL ASSEMBLIES SUPERVISOR IMPRESSION: Cholelithiasis. Fat infiltration of the liver. Otherwise, normal right upper qu adrant ultrasound.
== END 2024-10-06 09:40 | disposition home or self-care (01) ==
LOC: GOSHIMG 09:40
PROVIDERS: PCP Clinical Nurse Specialist; Visit Provider Clinical Nurse Specialist
DX: K80.20 Calculus of gallbladder without cholecystitis without obstruction (principal); K76.0 Fatty (change of) liver, not elsewhere classified
CPT/HCPCS: 76705

== ENCOUNTER 2024-10-11 00:09 | Day surgery (SDC) | payer BC, SELFPAY ==
[2024-10-04 14:50] VITALS: BMI 33.0
[2024-10-11 10:37] VITALS: BP 118/70; PULSE 70; RESP 18; TEMP 36.6; O2SAT 100
[2024-10-11] MEDS: LACTATED RINGERS 1,000 ML 150 ML IV CONT (10:55)
--- NOTE | 2024-10-11 11:26 | P.PNAN_ITS ---
Anes - Initial Pre Proc Eval Procedure: Operation Date: 10/11/24 11:30 Proposed Procedures p Esophagogastroduodenoscopy - Francesco Padilla MD Date/Time: 10/11/24 11:26 Surgeon: Francesco Padilla MD Pre Op Diagnosis: GERD Patient Data Age: 59 Gender: F Height: 1.68 m Weight: 94.3 kg Last Vital Signs Temp 97.8 F 10/11/24 10:37 Pulse 70 10/11/24 10:37 Resp 18 10/11/24 10:37 BP 118/70 10/11/24 10:37 Pulse Ox 100 10/11/24 10:37 O2 Del Method Room Air 10/11/24 10:37 Allergies Allergy/AdvReac Type Severity Reaction Status Date / Time No Known Allergies Allergy Verified 10/11/24 10:34 Home Medications Medication Instructions Recorded Confirmed Type levothyroxine 25 mcg tablet 25 mcg PO DAILY #90 tabs 09/06/24 10/11/24 Rx clindamycin HCl 300 mg capsule 300 mg PO Q6H #40 caps 09/24/24 10/11/24 Rx alprazolam 0.5 mg tablet (Xanax) 0.5 mg PO TID PRN anxiety #30 tabs 09/30/24 10/11/24 Rx calcium carbonate (Tums) 2 tablet PO QID 10/04/24 10/11/24 History escitalopram oxalate 10 mg tablet 10 mg PO DAILY 10/04/24 10/11/24 History Patient hx anesthesia problems: none Family hx anesthesia problems: none Results Review: All pre-operative results and documents have been reviewed as part of the pre- operative evaluation. [facility] Past Medical History Medical History Broken ankle Bronchitis Cough Depression Fever Influenza A Left leg pain Left leg swelling Surgical History Surgical History H/O section History of thyroid surgery History of tonsillectomy Family History Family History Father , June 2022 Bladder cancer Hypertension Bile duct cancer Mother Hypertension Heart disease Heart attack June 2023 Grandparent Cancer Diabetes mellitus Cerebrovascular accident Social History Social History Smoking status: Former smoker Alcohol intake: never Substance use: never Substance use type: does not use Lack of Transportation: No Lack of Food: Never True Current Housing: I Have Housing Concerned About Future Housing: No Difficulty Paying Gas/Electric Bills: No Education: Master's Degree or Higher Difficulty w/ Childcare or Family Care: No Living arrangements: alone Spiritual care concerns: No Anes - Eval Final PreProcedure Day of Procedure 10/11/24 11:26 Patient weight: obese Heart: regular rate and rhythm Lungs: clear to auscultation Airway: Mallampati scale class II Neurological: alert and oriented Last oral intake: >/= 8 hours ASA classification: II Emergent: no Anesthetic plan: proceed Anesthesia type and monitoring: general GIVS and standard monitoring Results Review: All pre-operative results and documents have been reviewed as part of the pre- operative evaluation. Informed Consent: The patient's anesthetic plan and its attendant risks and benefits were discussed with the patient/family/POA. Questions were solicited and answers provided to the satisfaction of the patient/family/POA.
--- NOTE | 2024-10-11 12:17 | SUR.PREOP ---
Dr. Padilla running behind schedule. Pt updated of delay in procedure.
--- NOTE | 2024-10-11 13:12 | PM.IMHP ---
H&P: HPI History of Present Illness Date/Time: 10/11/24 13:12 Chief Complaint: GERD Narrative: This patient has been suffering for heartburn and regurgitation for several years, currently controlled on a daily dose of PPI. She is referred for EGD. There is no dysphagia. Review of Systems Review of Systems: All systems reviewed & are unremarkable except as noted in HPI and below PMFSH Past Medical History Medical History Broken ankle Bronchitis Cough Depression Fever Influenza A Left leg pain Left leg swelling Surgical History Surgical History H/O section History of thyroid surgery History of tonsillectomy Family History Family History Father , June 2022 Bladder cancer Hypertension Bile duct cancer Mother Hypertension Heart disease Heart attack June 2023 Grandparent Cancer Diabetes mellitus Cerebrovascular accident Social History Social History Smoking status: Former smoker Alcohol intake: never Substance use: never Substance use type: does not use Lack of Transportation: No Lack of Food: Never True Current Housing: I Have Housing Concerned About Future Housing: No Difficulty Paying Gas/Electric Bills: No Education: Master's Degree or Higher Difficulty w/ Childcare or Family Care: No Living arrangements: alone Spiritual care concerns: No Meds Home Medications and Allergies Home Medications Medication Instructions Recorded Confirmed Type levothyroxine 25 mcg tablet 25 mcg PO DAILY #90 tabs 09/06/24 10/11/24 Rx clindamycin HCl 300 mg capsule 300 mg PO Q6H #40 caps 09/24/24 10/11/24 Rx alprazolam 0.5 mg tablet (Xanax) 0.5 mg PO TID PRN anxiety #30 tabs 09/30/24 10/11/24 Rx calcium carbonate (Tums) 2 tablet PO QID 10/04/24 10/11/24 History escitalopram oxalate 10 mg tablet 10 mg PO DAILY 10/04/24 10/11/24 History Allergies Allergy/AdvReac Type Severity Reaction Status Date / Time No Known Allergies Allergy Verified 10/11/24 10:34 Vital Signs Vital Signs - 24 hr 10/11/24 10:37 Temperature 97.8 F Pulse Rate 70 Respiratory Rate 18 Blood Pressure 118/70 Pulse Oximetry 100 Oxygen Delivery Room Air Exam Const: General: cooperative and healthy appearing Resp: Effort & Inspection: normal respiratory effort and able to speak in complete sentences Auscultation: clear to auscultation bilaterally Cardio: Rate: regular rate Rhythm: regular rhythm GI: Inspection: normal to inspection GI Palp: No No hepatosplenomegaly present Auscultation: normal bowel sounds Rectal Exam: deferred Skin: General skin exam: normal color Psych: Appearance: grossly normal Mental Status: mental status grossly normal Assessment and Plan Assessment and plan (1) Chronic GERD: Code(s): K21.9 - Gastro-esophageal reflux disease without esophagitis Status: Acute Assessment and Plan: The patient is deemed a good candidate for the procedure. Consent signed. Will proceed.
[2024-10-11] MEDS: BENZOCAINE (*SP) 60 ML SPRAY CAN (HURRICAINE) 1 SPRAY MUCOUS MEM (13:19)
[2024-10-11 13:33] VITALS: BP 103/64; PULSE 74; RESP 15; O2SAT 97
[2024-10-11 13:43] VITALS: BP 119/64; PULSE 80; RESP 15; O2SAT 97
[2024-10-11 13:53] VITALS: BP 112/64; PULSE 67; RESP 16; O2SAT 99
== END 2024-10-11 14:35 | disposition home or self-care (01) ==
PROVIDERS: PCP Clinical Nurse Specialist; Referring Provider Clinical Nurse Specialist; Visit Provider Internal Medicine Gastroenterology
PROC: 0DJ08ZZ Inspection of Upper Intestinal Tract, Via Natural or Artificial Opening Endoscopic (ICD-10-PCS; CPT 43235; principal; 2024-10-11 11:30)
DX: K22.2 Esophageal obstruction (principal); K44.9 Diaphragmatic hernia without obstruction or gangrene; K29.30 Chronic superficial gastritis without bleeding; K21.9 Gastro-esophageal reflux disease without esophagitis; F32.A Depression, unspecified; E66.9 Obesity, unspecified; Z68.33 Body mass index [BMI] 33.0-33.9, adult; Z98.890 Other specified postprocedural states; Z87.891 Personal history of nicotine dependence; Z80.52 Family history of malignant neoplasm of bladder; Z80.0 Family history of malignant neoplasm of digestive organs; Z82.49 Family history of ischemic heart disease and other diseases of the circulatory system
CPT/HCPCS: 43450; J2003; J2704; J7120

== ENCOUNTER 2025-03-02 16:42 | Emergency (ER) | payer BC, SELFPAY ==
[2025-03-02 16:45] VITALS: BP 124/83; PULSE 100; RESP 18; TEMP 36.9; O2SAT 98
--- OUTSIDE RECORDS SUMMARY | 2025-03-02 16:55 | XMS_ITS ---
Author Organization [facility] Address [address] [facility] [address] [place], [place] [id number] Care Team Providers Care Billiard Table Repairer Name Role Phone Derick Goel Primary Care Provider Unavailab Ney Fenton Unavailable [phone] Migration, Provider Unavailable Unavailable REASON FOR VISIT [facility] Encounter Medications Medication SIG (Take, Route, Frequency, Duration) Notes Start Date End Date Status PROBIOTICS *Please review f or potential replacement for e-prescription and drug interaction check* Unknown Ryaltris 25 MCG-665 MCG/INH 2 SPRAY(S) IN EACH NOSTRIL 2 TIMES A DAY for 30 DAYS *Please review and pick correct strength-formulati on from Medispan options. If intended option is not shown, discontinue and re-order from Quick Search* 06/04/2023 Active Escitalopram Oxalate *Please rev iew and pick correct strength-formulati on from Medispan options. If intended option is not shown, discontinue and re-order from Quick Search* Unknown Fluticasone Propionate 50 MCG/ACT 1 spray(s) in each nostril once a day for 30 day(s) 05/14/2023 Unknown DERMAL THERAPY *Please [...] Location Date Provider Diagnosis [facility] [address] [facility] [address] [place], [place] [phone] 10/30/2024 Provider Migration Chronic maxillary sinusitis J32.0 Assessments Encounter Date Diagnosis (ICD Code) Assessment Notes Treatment Notes Treatment Clinical Notes Section Notes 10/30/2024 Chronic maxillary sinusitis (ICD-10 - J32.0) Plan Of Treatment Medication Medication Name Sig Start Date Stop Date Notes Ryaltris 25 MCG-665 MCG/INH 2 SPRAY(S) IN EACH NOSTRIL 2 TIMES A DAY for 30 DAYS 06/04/2023 *Please review and p ick correct strength-formulation from [email or web address] options. If intended option is not shown, discontinue and re-order from Quick Search* Progress Notes * Candice ONTIVEROSDOB:1965 (59 yo F)Acc No.[id number]:10/30/2024 Patient: Candice VIEIRA Provider: Luis E Davalos :1965 A ge:59 Y S ex:Female Date:10/30/2024 Address:[address] [place] [address] Pcp:Derick Goel Subjective: * Chief Complaints: * 1 . Multum To Medispan Conversion Encounter. * Medical History: * Medications: U nknown DERMAL THERAPY , Notes to Pharmacist: *Please review for potential replacement for e-prescription and drug interaction check*, Unknown PROBIOTICS , Notes to Pharmacist: *Please review for potential replacement for e-prescription and drug interaction check*, Unknown Vitamin D3 , Notes to Pharmacist: *Please review and pick correct strength-formulation from Medispan options. If intended option is not shown, discontinue and re-order from Quick Search*, Unknown Vitamin C , Notes to Pharmacist: *Please review and pick correct strength-formulation from Medispan options. If intended option is not shown, discontinue and re-order from Quick Search*, Unknown L-LYSINE MONO HYDROCHLORIDE , Notes to Pharmacist: *Please review for potential replacement for e-prescription and drug interaction check*, Unknown Multivitamin , Notes to Pharmacist: *Please review and pick correct strength-formulation from APROOFEDan options. If intended option is not shown, discontinue and re-order from Quick Search*, Unknown HAIR, SKIN AND NAILS , Notes to Pharmacist: *Please review for potential replacement for e-prescription and drug interaction check*, Unknown Escitalopram Oxalate , Notes to Pharmacist: *Please review and pick correct strength-formulation from [email or web address] options. If intended option is not shown, discontinue and re-order from Quick Search*, Unknown Fluticasone Propionate 50 MCG/ACT Suspension 1 spray(s) in each nostril once a day Objective: * Vitals: * Physical Examination: Assessment: * Assessment: 1. C hronic maxillary sinusitis - J32.0 Plan: * Treatment: * * Electronic signature of Michelle ervin Migration on 03/02/2025 at 04:55 PM CDT Sign off status: Pending * Provider: Luis E lewis Migration Date: 1 12/31/2023 Generated for Garrett davila/Edward/Louie on: 0 03/02/2025 04:55 PM CDT
--- NOTE | 2025-03-02 16:56 | ED.WOUNDLAC ---
HPI - Wound/Laceration General Chief Complaint: Wound/Laceration Stated Complaint: puncture in left leg Time Seen by Provider: 03/02/25 16:56 Source: patient Mode of arrival: ambulatory Limitations: no limitations History of Present Illness HPI narrative: 59-year-old female with a history anxiety, hypothyroidism helping her daughter move staff. She accidentally fell down and landed her left knee on a protruding nail. The nail seems to have created a puncture wound measuring half an inch. no bleeding. Head injury. She fell on her left lateral forehead. No loss of consciousness. No headache/vomiting/blurred vision. Superficial laceration on the back of the right forearm measuring 10 cm. No other injuries noted. Onset (ago): hour(s) ( 1 hour ago) Location: face and other ( left knee and back of right forearm) Extremity Location: Left: knee and Right: forearm Body four view annotation:  1. puncture wound over the left knee below the patella. No bleeding. Tender on palpation. Normal range of motion of the left knee. 2. Injury to left lateral forehead. No bruising or hematoma noted. 3. 10 cm superficial laceration on the back of the right forearm Place: home Patient tetanus UTD: No Context: accidental Associated symptoms: none Related Data Home Medications ?Medication ?Instructions ?Recorded ?Confirmed ?Last Taken ?Type calcium carbonate (Tums) 2 tablet PO QID 10/04/24 03/02/25 10/10/24 History escitalopram oxalate 10 mg tablet 10 mg PO DAILY 10/04/24 03/02/25 10/10/24 History Allergies Allergy/AdvReac Type Severity Reaction Status Date / Time No Known Allergies Allergy Verified 10/11/24 10:34 Review of Systems Review of Systems: All systems reviewed & are unremarkable except as noted in HPI and below Constitutional: Constitutional: Reports as per HPI and Reports no additional constitutional complaints Eyes: Eyes: Reports as per HPI and Reports no additional eye complaints ENT: Reports system reviewed and no additional complaints, except as documented and Reports as per HPI Cardiovascular: Cardiovascular: Reports as per HPI and Reports no additional cardiovascular complaints Respiratory: Respiratory: Reports as per HPI and Reports no additional respiratory complaints Gastrointestinal: Gastrointestinal: Reports as per HPI and Reports no additional gastrointestinal complaints Genitourinary: Genitourinary: Reports no additional female genitourinary complaints and Reports as per HPI Musculoskeletal: Musculoskeletal: Reports no additional musculoskeletal complaints and Reports as per HPI Integumentary/Breasts: Skin/Breast: Reports system reviewed and no additional complaints, except as docu and Reports as per HPI Comments: puncture wound left knee. Superficial laceration on the back of the right forearm Neurologic: Reports system reviewed and no additional complaints, except as documented and Reports as per HPI Psychiatric: Psychiatric: Reports no additional psychiatric complaints and Reports as per HPI Endocrine: Endocrine: Reports no additional endocrine complaints and Reports as per HPI Hematologic/Lymphatic: Hematologic/Lymphatic: Reports no additional hematologic/lymphatic complaints and Reports as per HPI Allergic/Immunologic: Allergic/Immunologic: Reports no additional allergic/immunologic complaints and Reports as per HPI [facility] Past Medical History Medical History Influenza A Fever Cough Bronchitis Left leg swelling Left leg pain Depression Broken ankle Surgical History Surgical History H/O section History of tonsillectomy History of thyroid surgery Family History Family History Father , June 2022 Bladder cancer Hypertension Bile duct cancer Mother Hypertension Heart disease Heart attack June 2023 Grandparent Cancer Diabetes mellitus Cerebrovascular accident Social History Social History Smoking status: Never smoker Alcohol intake: never Substance use: never Substance use type: does not use Lack of Transportation: No Lack of Food: Never True Current Housing: I Have Housing Concerned About Future Housing: No Difficulty Paying Gas/Electric Bills: No Education: Master's Degree or Higher Difficulty w/ Childcare or Family Care: No Living arrangements: alone Spiritual care concerns: No Exam Narrative: vitals are stable Const: General: healthy appearing and no acute distress Nutritional Appearance: well nourished Orientation/consciousness: patient oriented x3 Limitations: no limitations HENMT: Head: normal to inspection and hematoma ( fell on her left lateral forehead. No hematoma or bruising noted.) Ears: external ears normal Face/Nose/Sinus: Normal external nose present Face and sinus: normal facial exam Mouth: Yes Normal oral and palatal mucosa present Throat: posterior oropharynx normal Eyes: Conjunctivae: conjunctivae normal Pupils: Equal, round and reactive pupils present EOM: EOMs intact bilaterally Direct Ophthalmoscopy: no photophobia Neck: Neck: normal visual inspection, no lymphadenopathy and no meningeal signs Other: No spinal tenderness Chest: Chest palpation & inspection: normal inspection of the chest Resp: Effort & Inspection: normal respiratory effort Auscultation: clear to auscultation bilaterally Cardio: Rate: regular rate Rhythm: regular rhythm GI: GI Palp: Yes Soft to palpation Auscultation: normal bowel sounds Other: no tenderness/rigidity /rebound Back/Spine/Pelvis: Back: no CVA tenderness Skin: General skin exam: normal color Rashes: no rashes Other: left knee puncture wound measuring 2-3 mm right posterior forearm has a 10 cm superficial laceration Neuro: General: patient oriented x3, moves all extremities, no meningeal signs, no focal motor deficits and CN's II-XI intact bilaterally Cranial nerves: Yes Nystagmus not present Speech: normal speech Gait exam (Neuro): Normal gait present Extrem: General: normal to inspection, no clubbing, cyanosis or edema and no pedal edema Other: left knee puncture wound and superficial laceration on the back of right forearm. unsure how the the puncture wound is. She has normal range of motion of the left knee. Psych: Mental Status: mental status grossly normal Affect: normal affect Attitude: cooperative Course Course Emergency Course: accidental fall puncture wound left knee head injury superficial laceration on the back of the right forearm Vital Signs Vital signs: Vital Signs Temperature 36.9 C 03/02/25 16:45 Pulse Rate 100 03/02/25 16:45 Respiratory Rate 18 03/02/25 16:45 Blood Pressure 124/83 03/02/25 16:45 Pulse Oximetry 98 03/02/25 16:45 Oxygen Delivery Room Air 03/02/25 16:45 Temperature 36.9 C 03/02/25 16:45 Pulse Rate 100 03/02/25 16:45 Respiratory Rate 18 03/02/25 16:45 Blood Pressure 124/83 03/02/25 16:45 Pulse Oximetry 98 03/02/25 16:45 Oxygen Delivery Room Air 03/02/25 16:45 MDM - Wound/Laceration MDM Narrative Medical decision making narrative: Accidental fall superficial abrasion on the back of the right forearm head injury puncture wound over the left knee Differential Diagnosis Differential diagnosis: Likely laceration and avulsion of skin Medical Records Attestation: I reviewed the patient's medical records. Discharge Plan Discharge Clinical Impression: Superficial laceration of forearm Accidental fall Qualifiers: Encounter type: initial encounter Qualified Code(s): W19.XXXA - Unspecified fall, initial encounter Puncture wound of knee, left Qualifiers: Encounter type: initial encounter Qualified Code(s): S81.032A - Puncture wound without foreign body, left knee, initial encounter Head injury Qualifiers: Encounter type: initial encounter Qualified Code(s): S09.90XA - Unspecified injury of head, initial encounter Patient Disposition: Home Condition: Stable Instructions: Antibiotic Form, Laceration (ED), Puncture Wound (ED), Head Injury (ED) Patient Language: Faroese Prescriptions: New amoxicillin-pot clavulanate 875-125 mg tablet 1 tablet PO Q12H Qty: 14 0RF No Action clindamycin HCl 300 mg capsule 300 mg PO Q6H Qty: 40 0RF Rx Instructions: Completed 10/05. alprazolam [Xanax] 0.5 mg tablet 0.5 mg PO TID PRN (Reason: anxiety) Qty: 30 3RF Rx Instructions: New prescription, has not started it Tums 300 mg (750 mg) Tablet,Chewable 2 tablet PO QID escitalopram oxalate 10 mg tablet 10 mg PO DAILY levothyroxine 25 mcg tablet See Rx Instructions .ROUTE .COMPLEX Qty: 90 0RF Dose Instruction: TAKE 1 TABLET BY MOUTH EVERY DAY Rx Instructions: TAKE 1 TABLET BY MOUTH EVERY DAY Follow-up/Referrals: UNKNOWN,DOCTOR [Non-Staff] - Time of Disposition: 17:16
--- OUTSIDE RECORDS SUMMARY | 2025-03-02 16:56 | XMS_ITS | Patient Health Record ---
Author Organization [facility] Address [address] [facility] [address] [place], [place] [id number] Care Team Providers Care Medical Librarian Name Role Phone Derick Goel Primary Care Provider Unavailab Ney Fenton Unavailable [phone] Migration, Provider Unavailable Unavailable Allergies No Known Allergies Reason For Referral No Information Medications Medication SIG (Take, Route, Frequency, Duration) [...] discontinue and re-order from Quick Search* Unknown Ryaltris 25 MCG-665 MCG/INH 2 SPRAY(S) IN EACH NOSTRIL 2 TIMES A DAY for 30 DAYS *Please review and pick correct strength-formulati on from Medispan options. If intended option is not shown, discontinue and re-order from Quick Search* 06/04/2023 Active L-LYSINE MONO HYDROCHLORIDE *Please review for potential replacement for e-prescription and drug interaction check* Unknown Multivitamin *Please review a nd pick correct strength-formulati on from Medispan options. If intended option is not shown, discontinue and re-order from Quick Search* Unknown HAIR, SKIN AND NAILS *Please rev iew for potential replacement for e-prescription and drug interaction check* Unknown Escitalopram Oxalate *Please rev iew and pick correct strength-formulati on from Medispan options. If intended option is not shown, discontinue and re-order from Quick Search* Unknown Fluticasone Propionate 50 MCG/ACT 1 spray(s) in each nostril once a day for 30 day(s) 05/14/2023 Unknown DERMAL THERAPY *Please review f or potential replacement for e-prescription and drug interaction check* Unknown Immunizations Vaccine Route Administration Date Status Comme nts Influenza Unknown 01/28/2017 Refused Problems Problem Type SNOMED Code ICD Code Onset Dates Problem Status W/U Status Risk Notes Problem Allergic rhinitis (27148863) Allergic rhinitis, unspecified (J30.9) Active confirmed Problem Chronic maxillary sinusitis (89466584) Chronic maxillary sinusitis (J32.0) Active confirmed Problem Chronic sinusitis (48033145) Chronic sinusitis, unspecified (J32.9) Active confirmed Problem Hypertrophy of nasal turbinates (37048735) Hypertrophy of nasal turbinates (J34.3) Active confirmed Encounters Encounter Location Date Provider Diagnosis [facility] [address] [facility] [address] [place], [place] [id number] 10/30/2024 Provider Migration Chronic maxillary sinusitis J32.0 Assessments Encounter Date Diagnosis (ICD Code) Assessment Notes Treatment Notes Treatment Clinical Notes Section Notes 10/30/2024 Chronic maxillary sinusitis (ICD-10 - J32.0) Plan Of Treatment No Information Insurance Providers Payer Name Payer Address Payer Phone Subscriber Number Group Number Insured Name Patient Relationship to Insured Coverage Start Date Coverage End Date [facility] [address] [place] [address] [id number] Candice Quick Self - patient is the insured Medical (General) History Medical History History ICD Code Pertinent Medical History: History of Al lergies, anemia in past Pertinent Medical History: H istory of Allergies, Ear problems, Throat/Neck problems, Anxiety/Depression, Anemia, Surgical History Surgery Date(Month/Year) cesarian section tonsillectomy right thyroidectomy --benign ajd 6-15
--- OUTSIDE RECORDS SUMMARY | 2025-03-02 16:56 | XMS_ITS | Clinical Summary ---
Author Organization [facility] Address [address] [place] [address] Care Team Providers Care Video Control Engineer Name Role Phone Christina Read MD Primary Care Provider [phone] Bonnie Jung MD Unavailable Source Comments [facility],non-owned Affiliates and Associated Physician Practices is amultiple site organization consisting of ambulatory clinics and hospital sitesin [place], [place], [place] and [place]. This disclosure is being madepursuant to the Care Everywhere program and may not contain all information available regarding this patient. Last updated 18.[facility] Allergies No known active allergies Medications * Be aware that medications may not be up to date on this document. Alwaysverify current medications with the patient. No known medications Active Problems Problem Noted Date Diagnosed Date S/P partial thyroidectomy 01/29/2016 Thyroid nodule 06/08/2015 Screening for condition 11/21/2008 Overview (08/17/2015): Pap Smear: Result: 12/2008, 01/2011, 01/2013 neonatal surgeon Shara Baez Mammogram: 02/2009, 02/2011, 02/2013 Anxiety Resolved Problems Problem Noted Date Diagnosed Date Resolved Date Vitamin D deficiency 06/15/2015 017 Pneumonia, lobar 09/28/2009 12/09/2016 Influenza A (H1N1) 09/22/2009 7 Immunizations Immunization Administration Dates Next Due INFLUENZA VACCINE, TRIV. (AF LURIA, FLUZONE TRIVALENT; 6MO+) (IIV3) 10/17/2014,07/31/2010 INFLUENZA VACCINE, QUADR. (F LUZONE; FLULAVAL; FLUARIX; AFLURIA QUADRIVALENT; 6MO+), 0.5 ML (IIV4) 10/17/2020,09/28/2015 PNEUMOCOCCAL PPSV23 02/25/2013 TDAP (7yrs+) 09/28/2015 TETANUS 11/17/2002 Family History Medical History Relation Name Comments Aneurysm Father abdominal Cancer Father bladder Hypercholesterolemia Father Heart Failure Maternal Grandfather Stroke Maternal Grandfather Cancer Maternal Grandmother colon Arthritis Mother COPD - Chronic Obstructive Pulmonary Disease Mother Cancer Paternal Grandfather unknown Tuberculosis Paternal Grandfather Cancer Paternal Grandmother unkown Diabetes Paternal Grandmother Relation Name Status Comments Father Maternal Grandfather Maternal Grandmother Mother Paternal Grandfather Paternal Grandmother Social History Tobacco Use Types Packs/Day Years Used Date Smoking Tobacco: Never Smokeless Tobacco: Never Alcohol Use Standard Drinks/Week Comments Yes 0 (1 standard drink = 0.6 oz pur e alcohol) social, rare Comments No Sex and Gender Information Value Date Recorded Sex Assigned at Not on file Legal Sex Female 6:18 AM STITCHER OPERATOR Gender Identity Not on file Sexual Orientation Not on file Last Filed Vital Signs Vital Sign Reading Time Taken Comments Blood Pressure 117/79 02/15/2021 9:46 AM CDT Pulse 78 02/15/2021 9:46 AM CDT Temperature 36.8 C (98.3 F) 02/15/2021 9:46 AM CDT Respiratory Rate 11 12/20/2011 8:47 AM STITCHER OPERATOR Oxygen Saturation 99% 05/06/2013 12:47 PM CDT Inhaled Oxygen Concentration - - Weight 95.9 kg (211 lb 6.4 oz) 02/15/2021 9:46 A M CDT Height 170.2 cm (5' 7 ) 02/15/2021 9:46 AM CDT Body Mass Index 33.11 02/15/2021 9:46 AM CDT Plan of Treatment Health Maintenance Due Date Last Done Comments COLOGUARD (AGES 45-75) - COLON CA SCREENING 1965 CT COLONOGRAPHY - COLON CA SCREENING 1965 FIT - COLON CA SCREENING 1965 FLEX SIG - COLON CA SCREENING 1965 HEPATITIS C SCREENING 03/09/1983 HEPATITIS B VACCINE (1 of 3 - 19+ 3-dose series) 1984 PNEUMOCOCCAL VACCINE 50+ (2 of 2 - PCV) 2015 02/25/2013 ZOSTER VACCINE (1 of 2) 2015 MAMMOGRAM 03/03/2019 03/03/2017, 03/03/2017 LIPID TESTING 12/19/2021 12/19/2016, 01/2012, 10/17/2008 SCREENING FOR DIABETES 02/16/2024 , 02/15/2021, 01/12/2018, Additional history exists COVID-19 VACCINE ( season) 2024 COLON MONITORING 11/02/2024 11/02/2014 COLONOSCOPY - COLON CA SCREENING 11/02/2024 11/02/2014 Colorectal Cancer Screening 11/02/2024 DEPRESSION SCREENING 11/17/2024 INFLUENZA VACCINE (Season Ended) 2025 10/17/2020, 09/28/2015, 10/17/2014, Additional history exists DTAP/TDAP/TD VACCINES (3 - Td or Tdap) 09/28/2025 09/28/2015, 11/17/2002 HIV SCREENING Completed 10/17/2008 HIB VACCINE Aged Out No longer eligi ble based on patient's age to complete this topic HPV VACCINE Aged Out No longer eligi ble based on patient's age to complete this topic MENINGOCOCCAL (Group B) VACCINE SHARED DECISION-MAKING Aged Out No longer eligible based on patient's age to complete this topic MENINGOCOCCAL GROUPS A/C/Y/W VACCINE Aged Out No longer eligible based on patient's age to complete this topic Procedures Procedure Name Priority Date/Time Associated Diagnosis Comments COMPREHENSIVE METABOLIC PANEL Routine 02/15/2021 10:38 AM CDT Paresthesia of bilateral legs MAMMOGRAPHY ORDER Routine 03/03/2017 LIPID PROFILE W TCHOL/HDL Routine 12/19/2016 10:26 AM STITCHER OPERATOR Chest pain, unspecified type ENDOSCOPY, COLON, SCREENING Routine 11/02/2014 HIV 1/0/2 ANTIBODIES W CONFIRM 10/17/2008 9:39 AM STITCHER OPERATOR from Last 3 Months or Most Recently Relevant to Health Maintenance Results * COMPREHENSIVE METABOLIC PANEL (02/15/2021 10:38 AM CDT) Glucose 95 70 - 105 mg/dL [facility] ACCOUNT BILL BUN 16 9.8 - 20.1 mg/dL [facility] ACCOUNT BILL Creatinine 0.71 0.57 - 1.11 mg/dL [facility] ACCOUNT BILL eGFR by MDRD >60 >60 mL/min/1.7 3m2 [facility] ACCOUNT BILL eGFR by MDRD >60 >60 mL/min/1.7 3m2 [facility] ACCOUNT BILL Sodium 141 136 - 145 mmol/L [facility] ACCOUNT BILL Potassium 4.3 3.5 - 5.1 mmol/L [facility] ACCOUNT BILL Chloride 104 98 - 107 mmol/L [facility] ACCOUNT BILL CO2 30 23 - 31 mmol/L [facility] ACCOUNT BILL Calcium 9.0 8.4 - 10.4 mg/dL [facility] ACCOUNT BILL Protein Total 7.2 6.4 - 8.3 gm/dL [facility] ACCOUNT BILL Albumin 4.5 3.5 - 5.2 gm/dL [facility] ACCOUNT BILL Bilirubin Total 0.7 0.2 - 1.2 mg/dL [facility] ACCOUNT BILL Comment:Attention clinician: Reference Range change. Alkaline Phosphatase 84 40 - 150 U/L [facility] ACCOUNT BILL Comment:Attention clinician: Reference Range change. AST 19 5 - 34 U/L [facility] ACCOUNT BILL ALT 30 0 - 61 U/L [facility] ACCOUNT BILL Comment:FASTING Blood BLOOD SPECIMEN / Unknown 02/15/2021 10:38 AM CDT 02/15/2021 Narrative Resulting Agency Comment Lab Testing performed at: [facility] [place] [id number] [place] [id number] Christina Read MD LAB - CHEMISTRY ORDERABLES Ruma oreilly Result [facility] ACCOUNT BILL [address] [place] [address] * MAMMOGRAPHY ORDER (03/03/2017) Anatomical Region Laterality Modality Mammography Christina Read MD MAMMO ORDERABLES Final Result * (ABNORMAL) LIPID PROFILE W TCHOL/HDL (PO REF LAB) (12/19/2016 10:26 AM STITCHER OPERATOR) Cholesterol 216(H) <200 mg/dL [facility] ACCOUNT BILL Triglycerides 81 <150 mg/dL [facility] ACCOUNT BILL HDL Cholesterol 69 >40 mg/dL [facility] ACCOUNT BILL VLDL Calculated 16 <=30 mg/dL [facility] ACCOUNT BILL LDL Calculated 131(H) <130 mg/dL [facility] ACCOUNT BILL Comment:LDL/HDL RATIO BLOOD (SSM) 1.9 <5.0 Cholesterol/HDL Ratio 3.1 <4.5 [facility] ACCOUNT BILL Blood BLOOD SPECIMEN / Unknown 12/19/2016 10:26 AM STITCHER OPERATOR 12/19/2016 Narrative Resulting Agency Comment [facility] [address] [place] [id number] Christina Read MD LAB - CHEMISTRY ORDERABLES Ruma l Result Performing Organization Address City/[facility] Co de Phone Number [facility] ACCOUNT BILL [address] [place] [address] * ENDOSCOPY, COLON, SCREENING (11/02/2014) us Crhistina Read MD GI PROCEDURE ORDERABLES Final R esult * HIV 1/0/2 ANTIBODIES W CONFIRM (PO REF LAB) (10/17/2008 9:39 AM STITCHER OPERATOR) HIV-1 Antibody EIA [facility] ACCOUNT BILL HIV-1 Antibody O.D. Ratio <1.00 <1.00 [facility] ACCOUNT BILL Comment:Index Value: Specime n reactivity relative to the negative cutoff. HIV-1/HIV-2 Non Reactive Non Reactive [facility] ACCOUNT BILL 10/17/2008 9:39 AM STITCHER OPERATOR 10/17/2008 5:58 PM STITCHER OPERATOR Narrative Resulting Agency Comment [facility] [address] [phone] [place] Christina Read MD LAB - MICROBIOLOGY ORDERABLES F inal Result [facility] ACCOUNT BILL [address] [place] [address] from Last 3 Months or Most Recently Relevant to Health Maintenance Insurance [employer] Care Teams Video Control Engineer Relationship Specialty Start Date End Date Christina Read MD PCP - General 11/21/08 Bonnie Jung MD Orthopedic Surgery 10/28/14
--- OUTSIDE RECORDS SUMMARY | 2025-03-02 16:56 | XMS_ITS | Patient Health Record ---
Author Organization [facility] Address [address] [place], [place] [id number] Care Team Providers Care Mechanical Product Engineer Name Role Phone Daniel Alvarenga [phone] Reason For Referral No Information Medications Medication SIG (Take, Route, Fr equency, Duration) Notes Start Date End Date Status Juice Plus Fibre - as directed Orally Active Social History Tobacco Use: Social History Observation Description Date Details (start date - stop date) Never Smoker NA - NA Alcohol Question Answer Notes Did you have a drink contain ing alcohol in the past year? Yes How often did you have a dri nk containing alcohol in the past year? Two to four times a month (2 points) How many drinks did you have on a typical day when you were drinking in the past year? 1 or 2 (0 points) How often did you have six o r more drinks on one occasion in the past year? Never (0 points) Points 2 Interpretation Negative Smoking Question Answer Notes Are you a: never smoker Plan Of Treatment No Information Insurance Providers Payer Name Payer Address Payer Phone Subscriber Number Group Number Insured Name Patient Relationship to Insured Coverage Start Date Coverage End Date BLUE CHOICE PPO (BCBS) [address] [place] [address] [phone] [id number] Candice Quick Self - patient is the insured Medical (General) History Surgical History Surgery Date(Month/Year) Thyroidectomy 2013 1985
--- NOTE | 2025-03-02 17:13 | PC.NURSE ---
On 03/02/25, the student, [greta carnes ], provided care and completed [facility] documentation on this patient. I have reviewed the student's documentation and agree with the findings.
[2025-03-02] MEDS: TETANUS,DIPHTHERIA,AC PERTUSSIS ADULT 0.5 ML (ADACEL) IM (17:26)
== END 2025-03-02 17:37 | disposition home or self-care (01) ==
PROVIDERS: Emergency Provider Internal Medicine Critical Care Medicine; PCP Internal Medicine
DX: S81.032A Puncture wound without foreign body, left knee, initial encounter (principal); S51.812A Laceration without foreign body of left forearm, initial encounter; E03.9 Hypothyroidism, unspecified; Z23 Encounter for immunization; W45.0XXA Nail entering through skin, initial encounter; W18.30XA Fall on same level, unspecified, initial encounter
CPT/HCPCS: 90471; 90715; 99282

== ENCOUNTER 2025-11-14 08:14 | Outpatient (CLI) | payer BC, SELFPAY ==
--- OUTSIDE RECORDS SUMMARY | 2024-10-30 15:30 | XMS_ITS ---
Author Organization [facility] Address [address] [facility] [address] [place], [place] [id number] Care Team Providers Care Web Worker Name Role Phone Derick Goel Primary Care Provider Unavailab Ney Fenton Unavailable [phone] Migration, Provider Unavailable Unavailable [facility] VISIT [facility] Encounter Medications Medication SIG (Take, Route, Frequency, Duration) Notes Start Date End Date Status PROBIOTICS *Please review f or potential replacement for e-prescription and drug interaction check* Unknown Ryaltris 25 MCG-665 MCG/INH SPRAY 2 SPRAY(S) IN EACH NOSTRIL 2 TIMES A DAY; Duration: 30 DAYS *Please review and pick correct strength-formulati on from Medispan options. If intended option is not shown, discontinue and re-order from Quick Search* 06/04/2023 Active Escitalopram Oxalate *Please rev iew and pick correct strength-formulati on from Medispan options. If intended option is not shown, discontinue and re-order from Quick Search* Unknown Fluticasone Propionate 50 MCG/ACT Suspension 1 spray(s) in each nostril once a day; Duration: 30 day(s) 05/14/2023 Unknown DERMAL THERAPY *Please review f or potential replacement for e-prescription and drug interaction check* Unknown Vitamin D3 *Please review a nd pick correct strength-formulati on from Medispan options. If intended option is not shown, discontinue and re-order from Quick Search* Unknown Vitamin C *Please review a nd pick correct strength-formulati on from Medispan options. If intended option is not shown, discontinue and re-order from Quick Search* Unknown L-LYSINE MONO HYDROCHLORIDE *Please review for potential replacement for e-prescription and drug interaction check* Unknown Multivitamin *Please review a nd pick correct strength-formulati on from Medispan options. If intended option is not shown, discontinue and re-order from Quick Search* Unknown HAIR, SKIN AND NAILS *Please rev iew for potential replacement for e-prescription and drug interaction check* Unknown Encounters Encounter Location Date Provider Diagnosis [facility] [address] [facility] [address] [place], [place] [id number] 10/30/2024 Provider Migration Chronic maxillary sinusitis J32.0 Assessments Encounter Date Diagnosis (ICD Code) Assessment Notes Treatment Notes Treatment Clinical Notes Section Notes 10/30/2024 Chronic maxillary sinusitis (ICD-10 - J32.0) Plan Of Treatment Medication Medication Name Sig Start Date Stop Date Notes Ryaltris 25 MCG-665 MCG/INH SPRAY 2 SPRAY(S) IN EACH NOSTRIL 2 TIMES A DAY; Duration: 30 DAYS 06/04/2023 *Please review and p ick correct strength-formulation from Medispan options. If intended option is not shown, discontinue and re-order from Quick Search* Progress Notes * Candice ONTIVEROSDOB:1965 (60 yo F)Acc No.[id number]:10/30/2024 Patient: Candice Jean Provider: Luis E Davalos :1965 A ge:59 Y S ex:Female Date:10/30/2024 [facility] Pcp:Derick Goel Subjective: * Chief Complaints: * M ultum To Medispan Conversion Encounter * Medications: U nknownDERMAL THERAPY , Notes to Pharmacist: *Please review for potential replacement for e-prescription and drug interaction check*PROBIOTICS , Notes to Pharmacist: *Please review for potential replacement for e-prescription and drug interaction check*Vitamin D3 , Notes to Pharmacist: *Please review and pick correct strength-formulation from Medispan options. If intended option is not shown, discontinue and re-order from Quick Search*Vitamin C , Notes to Pharmacist: *Please review and pick correct strength-formulation from Medispan options. If intended option is not shown, discontinue and re-order from Quick Search*L-LYSINE MONO HYDROCHLORIDE , Notes to Pharmacist: *Please review for potential replacement for e-prescription and drug interaction check*Multivitamin , Notes to Pharmacist: *Please review and pick correct strength-formulation from Medispan options. If intended option is not shown, discontinue and re-order from Quick Search*HAIR, SKIN AND NAILS , Notes to Pharmacist: *Please review for potential replacement for e- prescription and drug interaction check*Escitalopram Oxalate , Notes to Pharmacist: *Please review and pick correct strength-formulation from Medispan options. If intended option is not shown, discontinue and re-order from Quick Search*Fluticasone Propionate 50 MCG/ACT Suspension 1 spray(s) in each nostril once a day Unknown DERMAL THERAPY , Notes to Pharmacist: *Please review for potential replacement for e-prescription and drug interaction check*Unknown PROBIOTICS , Notes to Pharmacist: *Please review for potential replacement for e-prescription and drug interaction check*Unknown Vitamin D3 , Notes to Pharmacist: *Please review and pick correct strength-formulation from Medispan options. If intended option is not shown, discontinue and re-order from Quick Search*Unknown Vitamin C , Notes to Pharmacist: *Please review and pick correct strength-formulation from Medispan options. If intended option is not shown, discontinue and re-order from Quick Search*Unknown L-LYSINE MONO HYDROCHLORIDE , Notes to Pharmacist: *Please review for potential replacement for e-prescription and drug interaction check*Unknown Multivitamin , Notes to Pharmacist: *Please review and pick correct strength-formulation from Medispan options. If intended option is not shown, discontinue and re-order from Quick Search*Unknown HAIR, SKIN AND NAILS , Notes to Pharmacist: *Please review for potential replacement for e-prescription and drug interaction check*Unknown Escitalopram Oxalate , Notes to Pharmacist: *Please review and pick correct strength-formulation from Medispan options. If intended option is not shown, discontinue and re-order from Quick Search*Unknown Fluticasone Propionate 50 MCG/ACT Suspension 1 spray(s) in each nostril once a day Assessment: * Assessment: 1. C hronic maxillary sinusitis - J32.0 Plan: * Treatment: * Electronic signature of Prov ider Migration on 11/14/2025 at 08:22 AM SHOE CUTTER Sign off status: Pending * Provider: Luis E lewis Migration Date: 12/31/2023 Generated for Garrett davila/Edward/Louie on: 08:22 AM SHOE CUTTER
--- OUTSIDE RECORDS SUMMARY | 2025-11-14 08:23 | XMS_ITS | Patient Health Record ---
Author Organization [facility] Address [address] [place], [place] [id number] Care Team Providers Care System Software Developer Name Role Phone Daniel Alvarenga [phone] Reason For Referral No Information Medications Medication SIG (Take, Route, Frequency, Duration) Notes Start Date End Date Status Juice Plus Fibre - Liquid as directed Orally Active Social History Tobacco Use: Social History Observation Description Date Details (start date - stop date) Never Smoker NA - NA Social History Social History Social Info Question Answer Notes Alcohol Did you have a drink containing alcohol i n the past year? Yes How often did you have a drink containing alcohol in the past year? Two to four times a month (2 points) How many drinks did you have on a typical day when you were drinking in the past year? 1 or 2 (0 points) How often did you have six or more drinks on one occasion in the past year? 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
--- OUTSIDE RECORDS SUMMARY | 2025-11-14 08:23 | XMS_ITS | Patient Health Record ---
Author Organization [facility] Address [address] [place], [place] [id number] Care Team Providers Care Cycle Touring Guide Name Role Phone Derick Goel Primary Care Provider Unavailab Ney Fenton Unavailable [phone] Allergies No Known Allergies Reason For Referral [...] Quick Search* Unknown Ryaltris 25 [id number]-[id number] MCG/INH SPRAY 2 [...] Status Comme nts Influenza Unknown 01/28/2017 Refused Social History Social History Additional Details Category Social Info Options Details Social History Occupation Yes Recreational drug use No Smokeless Tobacco No Passive smoke exp: No Problems Problem Type SNOMED Code ICD Code Onset Dates Problem Status W/U Status Risk Notes Problem Allergic rhinitis (35884995) Allergic rhinitis, unspecified (J30.9) Active confirmed Problem Chronic maxillary sinusitis (58930622) Chronic maxillary sinusitis (J32.0) Active confirmed Problem Chronic sinusitis (50829321) Chronic sinusitis, unspecified (J32.9) Active confirmed Problem Hypertrophy of nasal turbinates (23611564) Hypertrophy of nasal turbinates (J34.3) Active confirmed Plan Of Treatment No Information Insurance Providers Payer Name Payer Address Payer Phone Subscriber Number Group Number Insured Name Patient Relationship to Insured Coverage Start Date Coverage End Date [facility] [address] [place] [address] [id number] Candice Quick Self - patient is the insured Medical (General) History Medical History History ICD Code Pertinent Medical History: History of Al lergies, anemia in past Pertinent Medical History: H istory of Allergies, Ear problems, Throat/Neck problems, Anxiety/Depression, Anemia, Surgical History Surgery Date(Month/Year) cesarian section tonsillectomy right thyroidectomy --benign ajd 6-15
--- OUTSIDE RECORDS SUMMARY | 2025-11-14 08:23 | XMS_ITS | Clinical Summary ---
Author Organization [facility] Address [address] [place] [address] Care Team Providers Care Powerhouse Tender Name Role Phone Christina Read MD Primary Care Provider Bonnie Jung MD Unavailable [phone] Source Comments [facility],non-owned Affiliates and Associated Physician Practices is amultiple site organization consisting of ambulatory clinics and hospital sitesin [place], [place], [place] and [place]. This disclosure is being madepursuant to the Care Everywhere program and may not contain all information available regarding this patient. Last updated 18.[facility] Allergies No known active allergies Medications * Be aware that medications may not be up to date on this document. Alwaysverify current medications with the patient. No known medications Active Problems Problem Noted Date Diagnosed Date S/P partial thyroidectomy 01/29/2016 Thyroid nodule 06/08/2015 Screening for condition 11/21/2008 Overview (08/17/2015): Pap Smear: Result: 12/2008, 01/2011, 01/2013 customs import specialist Shara Baez Mammogram: 02/2009, 02/2011, 02/2013 Anxiety [...] on file Legal Sex Female 6:18 AM QUARTER FOLDER Gender Identity Not on file Sexual Orientation Not on file Last Filed Vital Signs Vital Sign Reading Time Taken Comments Blood Pressure 117/79 02/15/2021 9:46 AM CDT Pulse 78 02/15/2021 9:46 AM CDT Temperature 36.8 C (98.3 F) 02/15/2021 9:46 AM CDT Respiratory Rate 11 12/20/2011 8:47 AM QUARTER FOLDER Oxygen Saturation 99% 05/06/2013 12:47 PM CDT Inhaled Oxygen Concentration - - Weight 95.9 kg (211 lb 6.4 oz) 02/15/2021 9:46 A M CDT Height 170.2 cm (5' 7) 02/15/2021 9:46 AM CDT Body Mass Index 33.11 02/15/2021 9:46 AM CDT Plan of Treatment Health Maintenance Due Date Last Done Comments COLOGUARD (AGES 45-75) - COLON CA SCREENING 1965 CT COLONOGRAPHY - COLON CA SCREENING 1965 FIT - COLON CA SCREENING 1965 FLEX SIG - COLON CA SCREENING 1965 HEPATITIS C SCREENING 03/09/1983 PNEUMOCOCCAL VACCINE 50+ (2 of 2 - PCV) 2015 02/25/2013 ZOSTER VACCINE (1 of 2) 2015 MAMMOGRAM 03/03/2019 03/03/2017, 03/03/2017 LIPID TESTING 12/19/2021 12/19/2016, 01/2012, 10/17/2008 SCREENING FOR DIABETES 02/16/2024 1, 02/15/2021, 01/12/2018, Additional history exists COLON MONITORING 11/02/2024 11/02/2014 COLONOSCOPY - COLON CA SCREENING 11/02/2024 11/02/2014 Colorectal Cancer Screening 11/02/2024 DEPRESSION SCREENING 11/17/2024 COVID-19 VACCINE ( - season) 2025 INFLUENZA VACCINE (#1) 2025 0, 09/28/2015, 10/17/2014, Additional history exists DTAP/TDAP/TD VACCINES (3 - Td or Tdap) 09/28/2025 09/28/2015, 11/17/2002 Respiratory Syncytial Virus (RSV) Vaccine Pt: or over 60 yrs (1 - 1-dose 75+ series) 2040 HIV SCREENING Completed 10/17/2008 Cervical Cancer Screening Discontinued PAP SMEAR Discontinued 01/08/2016 (Prev iously completed) HEPATITIS B VACCINE Aged Out No longe r eligible based on patient's age to complete this topic HIB VACCINE Aged Out No longer eligi [...] on patient's age to complete this topic PAP with HPV Discontinued Procedures Procedure Name Priority Date/Time Associated Diagnosis Comments COMPREHENSIVE METABOLIC PANEL Routine 02/15/2021 10:38 AM CDT Paresthesia of bilateral legs MAMMOGRAPHY ORDER Routine 03/03/2017 LIPID PROFILE W TCHOL/HDL Routine 12/19/2016 10:26 AM QUARTER FOLDER Chest pain, unspecified type ENDOSCOPY, COLON, SCREENING Routine 11/02/2014 HIV 1/0/2 ANTIBODIES W CONFIRM 10/17/2008 9:39 AM QUARTER FOLDER from Last 3 Months or Most Recently [...] Resulting Agency Comment Lab Testing performed at: [facility] [address] [place] [phone] us Christina Read MD LAB - CHEMISTRY ORDERABLES Ruma l Result [facility] ACCOUNT BILL [address] [place] [address] * MAMMOGRAPHY ORDER (03/03/2017) Anatomical Region Laterality Modality Mammography Christina Read MD MAMMO ORDERABLES Final Result * (ABNORMAL) LIPID PROFILE W TCHOL/HDL (PO REF LAB) (12/19/2016 10:26 AM QUARTER FOLDER) Cholesterol 216(H) <200 mg/dL [facility] ACCOUNT BILL Triglycerides 81 <150 mg/dL [facility] ACCOUNT BILL HDL Cholesterol 69 >40 mg/dL [facility] ACCOUNT BILL VLDL Calculated 16 <=30 mg/dL [facility] ACCOUNT BILL LDL Calculated 131(H) <130 mg/dL [facility] ACCOUNT BILL Comment:LDL/HDL RATIO BLOOD (SSM) 1.9 <5.0 Cholesterol/HDL Ratio 3.1 <4.5 [facility] ACCOUNT BILL Blood BLOOD SPECIMEN / Unknown 12/19/2016 10:26 AM QUARTER FOLDER 12/19/2016 Narrative Resulting Agency Comment [facility] [address] [place] [phone] Christina Read MD LAB - CHEMISTRY ORDERABLES Ruma l Result [facility] ACCOUNT BILL [address] [place] [address] * ENDOSCOPY, COLON, SCREENING (11/02/2014) us Christina Read MD GI PROCEDURE ORDERABLES Final R esult * HIV 1/0/2 ANTIBODIES W CONFIRM (PO REF LAB) (10/17/2008 9:39 AM QUARTER FOLDER) HIV-1 Antibody EIA [facility] ACCOUNT BILL HIV-1 Antibody O.D. Ratio <1.00 <1.00 [facility] ACCOUNT BILL Comment:Index Value: Specime n reactivity relative to the negative cutoff. HIV-1/HIV-2 Non Reactive Non Reactive [facility] ACCOUNT BILL 10/17/2008 9:39 AM QUARTER FOLDER 10/17/2008 5:58 PM QUARTER FOLDER Narrative Resulting Agency Comment [facility] [address] [facility] [phone] us Christina Read MD LAB - MICROBIOLOGY ORDERABLES F inal Result [facility] ACCOUNT BILL [address] [place] [address] from Last 3 Months or Most Recently Relevant to Health Maintenance Insurance [employer] Care Teams Powerhouse Tender Relationship Specialty Start Date End Date Christina Read MD PCP - General 11/21/08 Bonnie Jung MD Orthopedic Surgery 10/28/14
[2025-11-14 08:43] LABS: Hematocrit 41.4 % (35.0-49.0); Hemoglobin 13.5 g/dL (12.0-15.0); Immature Granulocyte Percent A 0.2 % (0.0-0.0); Lymphocytes Absolute Auto 2.19 K/mm3 (1.10-4.50); Mean Corpuscular HGB Conc 32.6 g/dL (32-36); Mean Corpuscular Hemoglobin 29.1 pg (27.0-31.0); Mean Corpuscular Volume 89.2 fL (78.0-102.0); Nucleated Red Blood Cells Absolute Auto 0.00 K/mm3 (0.00-0.00); Nucleated Red Blood Cells Perc 0.0 % (0-0.0); Platelet Count Result 242 K/mm3 (150-420); Red Blood Count 4.64 M/mm3 (4.20-5.40); White Blood Count 5.3 K/mm3 (4.8-10.8)
[2025-11-14 08:53] LABS: Alanine Aminotransferase 34 U/L (6-35); Albumin Level 4.5 g/dL (3.5-5.1); Alkaline Phosphatase 69 U/L (38-126); Anion Gap 9 mmol/L (4-12); Aspartate Amino Transferase 33 U/L (14-36); Bilirubin,Total 0.2 mg/dL (0.2-1.3); Blood Urea Nitrogen 20 mg/dL (7-17); Calcium 8.8 mg/dL (8.4-10.2); Carbon Dioxide 25 mmol/L (22-30); Chloride 110 mmol/L (98-107); Cholesterol 202 mg/dL (0-200); Estimated Glomerular Filt Rate > 60; Glucose 106 mg/dL (65-110); HDL Direct 70 mg/dL; Osmolality Calculated 300 mOsm/kg (285-295); Potassium 3.9 mmol/L (3.4-5.0); Sodium 144 mmol/L (137-145); Total Protein 7.1 g/dL (6.3-8.2); Triglycerides 86 mg/dL (<150)
[2025-11-14 08:54] LABS: Hemoglobin A1C 5.3 % (<5.7)
[2025-11-14 09:24] LABS: Thyroid Stimulating Hormone 4.090 uIU/mL (0.465-4.680)
[2025-11-14 15:05] LABS: Free T4 Free Thyroxine 1.00 ng/dL (0.78-2.19)
[2025-11-14 15:12] LABS: Free T3 3.53 pg/mL (2.18-3.98)
== END 2025-11-14 08:15 | disposition home or self-care (01) ==
LOC: CHSLAB 08:17
PROVIDERS: PCP Internal Medicine; Visit Provider Clinical Nurse Specialist
DX: E03.9 Hypothyroidism, unspecified (principal); Z13.228 Encounter for screening for other metabolic disorders; E55.9 Vitamin D deficiency, unspecified; R53.83 Other fatigue; Z13.220 Encounter for screening for lipoid disorders; R73.01 Impaired fasting glucose
CPT/HCPCS: 36415; 80053; 80061; 82306; 83036; 84439; 84443; 84481; 85025